=== PATIENT | male | born 1940 ===

== ENCOUNTER 2022-08-09 13:55 | Emergency (ER) | payer MEDICARE, BC ==
[2022-08-09 14:13] VITALS: BP 153/70; PULSE 87
[2022-08-09] MEDS ORDERED: HYDROmorphone 2 MG/ML Syringe IVPUSH ONE ×2 (14:22→16:11)
[2022-08-09] MEDS ORDERED: HYDROmorphone 2 MG/ML Syringe ONE (14:25)
[2022-08-09 14:29] LABS: BASOPHILS ABSOLUTE AUTO 0.05 K/uL (0.02-0.10); BASOPHILS PERCENT AUTO 0.3 % (0.0-0.5); EOSINOPHILS ABSOLUTE AUTO 0.05 K/uL (0.04-0.40); EOSINOPHILS PERCENT AUTO 0.3 % (1.0-5.0); HEMATOCRIT 39.2 % (40.0-54.0); HEMOGLOBIN 12.9 g/dL (13.0-18.0); LYMPHOCYTES ABSOLUTE AUTO 1.74 K/uL (1.50-4.00); LYMPHOCYTES PERCENT AUTO 10.2 % (20.0-40.0); MEAN CORPUSCULAR HEMOGLOBIN 30.1 pg (27.0-32.0); MEAN CORPUSCULAR HGB CONC 32.9 g/dL (31.0-35.0); MEAN CORPUSCULAR VOLUME 92 fL (76-96); MEAN PLATELET VOLUME 10.3 fL (6.0-10.0); MONOCYTES ABSOLUTE AUTO 1.34 K/uL (0.20-0.80); MONOCYTES PERCENT AUTO 7.8 % (3.0-10.0); NEUTROPHILS ABSOLUTE AUTO 13.94 K/uL (2.00-7.50); NEUTROPHILS PERCENT AUTO 81.4 % (45.0-70.0); PLATELET COUNT,PLT 289 K/uL (150-400); RED BLOOD CELL COUNT 4.28 M/uL (4.50-6.50); RED CELL DISTRIBUTION WIDTH 12.7 % (11.0-16.0); WHITE BLOOD CELL COUNT,WBC 17.1 K/uL (4.0-11.0)
[2022-08-09 14:48] LABS: A/G RATIO 1.2 (0.8-2.0); ALANINE AMINOTRANSFERASE,ALT 38 U/L (12-78); ALBUMIN 3.7 g/dL (3.4-5.0); ALKALINE PHOSPHATASE 100 U/L (46-116); ANION GAP 15.9 mmol/L (5.0-15.0); ASPARTATE AMNIOTRANSFERASE,AST 41 U/L (15-37); BILIRUBIN TOTAL 0.2 mg/dL (0.0-1.0); BLOOD UREA NITROGEN,BUN 24 mg/dL (8-26); BUN/CREATININE RATIO 18.3 (6-25); CALCIUM 8.9 mg/dL (8.5-10.1); CARBON DIOXIDE,CO2 24.8 mmol/L (21.0-32.0); CHLORIDE,CL 107 mmol/L (98-107); CREATININE 1.31 mg/dL (0.70-1.30); ESTIMATED GFR 55 mL/min (>60); GLUCOSE RANDOM 177 mg/dL (74-100); POTASSIUM,K 4.7 mmol/L (3.5-5.1); PROTEIN TOTAL,TP 6.9 g/dL (6.4-8.2); SODIUM,NA 143 mmol/L (136-145)
[2022-08-09 14:51] LABS: PROTHROMBIN TIME 10.2 sec (9.0-11.5)
[2022-08-09 14:52] LABS: TROPONIN I HIGH SENSITIVITY 7.6 pg/ml (<=60.4)
[2022-08-09] MEDS ORDERED: Sodium Chloride 0.9% 1,000 ML IV ONE (15:00)
[2022-08-09] MEDS ORDERED: Clindamycin Phosphate 600 MG in Dextrose 5% in Water 50 ML IV ONE ×2 (15:44)
[2022-08-09] MEDS ORDERED: HYDROmorphone 2 MG/ML Syringe IVPUSH PRN (15:46)
[2022-08-09] MEDS ORDERED: Ketorolac 30 MG/ML SDV IVPUSH ONE (16:11)
[2022-08-09] MEDS ORDERED: Ondansetron 4 MG/2 ML SDV IVPUSH ONE (16:11)
[2022-08-09 16:16] LABS: APPEARANCE,URINE CLEAR (CLEAR); BILIRUBIN,URINE NEGATIVE (NEGATIVE); COLOR,URINE YELLOW; GLUCOSE,URINE NEGATIVE (NEGATIVE); KETONES,URINE TRACE mg/dL (NEGATIVE); LEUKOCYTE ESTERASE,URINE NEGATIVE (NEGATIVE); NITRITE,URINE NEGATIVE (NEGATIVE); OCCULT BLOOD,URINE MODERATE (NEGATIVE); PROTEIN,URINE >=300 mg/dL (NEGATIVE); UROBILINOGEN,URINE 0.2 E.U./dL (0.2-1.0)
[2022-08-09] MEDS ORDERED: Ketorolac 30 MG/ML SDV ONE (16:23)
[2022-08-09] MEDS ORDERED: Ondansetron 4 MG/2 ML SDV ONE (16:23)
[2022-08-09 16:28] LABS: RBC,URINE 0-5 /HPF
[2022-08-09 16:29] LABS: WBC,URINE NOT SEEN /HPF
== END 2022-08-09 16:44 ==
LOC: LB.ED 13:55
DX: S32.010A Wedge compression fracture of first lumbar vertebra, initial encounter for closed fracture (principal); S80.01XA Contusion of right knee, initial encounter; S80.02XA Contusion of left knee, initial encounter; S40.012A Contusion of left shoulder, initial encounter; E11.9 Type 2 diabetes mellitus without complications; Z79.84 Long term (current) use of oral hypoglycemic drugs; Z88.0 Allergy status to penicillin; Z88.1 Allergy status to other antibiotic agents; W55.22XA Struck by cow, initial encounter
CPT/HCPCS: 36415; 71250; 72128; 72131; 74176; 80053; 81001; 83605; 83690; 84484; 85025; 85610; 86850; 86900; 86901; 96365; 96375; 96376; 99285; A0425; A0429; J1170; J1885; J2405; J3490; J7030

== ENCOUNTER 2022-08-16 14:39 | Inpatient (IN) | payer MEDICARE, BC ==
[2022-08-16] MEDS ORDERED: Tuberculin, PPD 5 Units/0.1 ML 1 ML MDV IDERM ONE (16:00)
[2022-08-16] MEDS: oxyCODONE 5 MG Tab PO PRN ×2 (16:18→21:20)
[2022-08-16] MEDS: metFORMIN 500 MG Tab PO SCH (17:38)
[2022-08-16] MEDS: Acetaminophen 500 MG Tab PO SCH (19:31)
[2022-08-16] MEDS: Phenytoin 100 MG Cap.ER PO SCH (19:32)
[2022-08-16] MEDS: Aspirin 325 MG Tab.EC PO SCH (19:32)
[2022-08-16] MEDS: atorvaSTATin 80 MG Tab PO SCH (19:33)
[2022-08-16] MEDS: Lisinopril 20 MG Tab PO SCH (21:19)
[2022-08-16] MEDS: Latanoprost 0.005% Ophth Soln 2.5 ML Bottle EYERT SCH (21:20)
[2022-08-17] MEDS: oxyCODONE 5 MG Tab PO PRN ×4 (01:29→20:32)
[2022-08-17] MEDS: Docusate Sodium 100 MG Cap PO SCH (08:10)
[2022-08-17] MEDS: Phenytoin 100 MG Cap.ER PO SCH ×2 (08:11→19:17)
[2022-08-17] MEDS: Polyethylene Glycol 3350 Powder 17 GM Packet PO SCH (08:11)
[2022-08-17] MEDS: metFORMIN 500 MG Tab PO SCH ×2 (08:11→17:02)
[2022-08-17] MEDS: Omeprazole 20 MG Cap.CR PO SCH (08:11)
[2022-08-17] MEDS: Acetaminophen 500 MG Tab PO SCH ×2 (08:13→19:15)
[2022-08-17] MEDS ORDERED: oxyCODONE 5 MG Tab PO ONE (14:15)
[2022-08-17] MEDS: atorvaSTATin 80 MG Tab PO SCH (19:16)
[2022-08-17] MEDS: Lisinopril 20 MG Tab PO SCH (19:17)
[2022-08-17] MEDS: Aspirin 325 MG Tab.EC PO SCH (19:18)
[2022-08-17] MEDS: Latanoprost 0.005% Ophth Soln 2.5 ML Bottle EYERT SCH (19:52)
[2022-08-18] MEDS: oxyCODONE 5 MG Tab PO PRN ×6 (04:32→23:49)
[2022-08-18] MEDS: Omeprazole 20 MG Cap.CR PO SCH (08:22)
[2022-08-18] MEDS: Phenytoin 100 MG Cap.ER PO SCH ×2 (08:22→19:42)
[2022-08-18] MEDS: metFORMIN 500 MG Tab PO SCH ×2 (08:22→16:27)
[2022-08-18] MEDS: Docusate Sodium 100 MG Cap PO SCH (08:22)
[2022-08-18] MEDS: Polyethylene Glycol 3350 Powder 17 GM Packet PO SCH (08:22)
[2022-08-18] MEDS: Acetaminophen 500 MG Tab PO SCH ×2 (08:23→19:42)
[2022-08-18] MEDS: atorvaSTATin 80 MG Tab PO SCH (19:42)
[2022-08-18] MEDS: Aspirin 325 MG Tab.EC PO SCH (19:42)
[2022-08-18] MEDS: Lisinopril 20 MG Tab PO SCH (19:43)
[2022-08-18] MEDS: Latanoprost 0.005% Ophth Soln 2.5 ML Bottle EYERT SCH (19:45)
[2022-08-19] MEDS: metFORMIN 500 MG Tab PO SCH ×2 (09:17→17:06)
[2022-08-19] MEDS: Docusate Sodium 100 MG Cap PO SCH (09:18)
[2022-08-19] MEDS: Omeprazole 20 MG Cap.CR PO SCH (09:19)
[2022-08-19] MEDS: Phenytoin 100 MG Cap.ER PO SCH ×2 (09:19→19:30)
[2022-08-19] MEDS: Acetaminophen 500 MG Tab PO SCH ×2 (09:20→19:31)
[2022-08-19] MEDS: Polyethylene Glycol 3350 Powder 17 GM Packet PO SCH (09:20)
[2022-08-19] MEDS: oxyCODONE 5 MG Tab PO PRN ×2 (09:20→19:34)
[2022-08-19 12:25] LABS: APPEARANCE,URINE CLEAR (CLEAR); BILIRUBIN,URINE NEGATIVE (NEGATIVE); COLOR,URINE YELLOW; GLUCOSE,URINE NEGATIVE (NEGATIVE); KETONES,URINE NEGATIVE (NEGATIVE); LEUKOCYTE ESTERASE,URINE NEGATIVE (NEGATIVE); NITRITE,URINE NEGATIVE (NEGATIVE); OCCULT BLOOD,URINE NEGATIVE (NEGATIVE); PROTEIN,URINE NEGATIVE (NEGATIVE)
[2022-08-19] MEDS: Aspirin 325 MG Tab.EC PO SCH (19:30)
[2022-08-19] MEDS: Lisinopril 20 MG Tab PO SCH (19:32)
[2022-08-19] MEDS: atorvaSTATin 80 MG Tab PO SCH (19:32)
[2022-08-19] MEDS: Latanoprost 0.005% Ophth Soln 2.5 ML Bottle EYERT SCH (19:34)
[2022-08-20] MEDS: Docusate Sodium 100 MG Cap PO SCH (08:09)
[2022-08-20] MEDS: Omeprazole 20 MG Cap.CR PO SCH (08:10)
[2022-08-20] MEDS: Phenytoin 100 MG Cap.ER PO SCH ×2 (08:10→19:57)
[2022-08-20] MEDS: Acetaminophen 500 MG Tab PO SCH ×2 (08:10→19:52)
[2022-08-20] MEDS: Polyethylene Glycol 3350 Powder 17 GM Packet PO SCH (08:10)
[2022-08-20] MEDS: metFORMIN 500 MG Tab PO SCH ×2 (08:10→17:09)
[2022-08-20] MEDS ORDERED: Celecoxib 100 MG Cap PO ONE (11:45)
[2022-08-20] MEDS ORDERED: traZODone 50 MG Tab ONE (19:50)
[2022-08-20] MEDS: Lisinopril 20 MG Tab PO SCH (19:53)
[2022-08-20] MEDS: Celecoxib 100 MG Cap PO SCH (19:54)
[2022-08-20] MEDS: oxyCODONE 5 MG Tab PO PRN (19:55)
[2022-08-20] MEDS: Latanoprost 0.005% Ophth Soln 2.5 ML Bottle EYERT SCH (19:56)
[2022-08-20] MEDS: atorvaSTATin 80 MG Tab PO SCH (19:56)
[2022-08-20] MEDS: Aspirin 325 MG Tab.EC PO SCH (19:56)
[2022-08-20] MEDS: traZODone 50 MG Tab PO PRN (19:57)
[2022-08-21] MEDS ORDERED: LORazepam 2 MG/ML SDV IM PRN (01:27)
[2022-08-21] MEDS: LORazepam 2 MG/ML SDV ONE ×2 (01:30→01:42)
[2022-08-21] MEDS: Phenytoin 100 MG Cap.ER PO SCH ×2 (08:31→19:30)
[2022-08-21] MEDS: metFORMIN 500 MG Tab PO SCH ×2 (08:31→17:49)
[2022-08-21] MEDS: Docusate Sodium 100 MG Cap PO SCH (08:31)
[2022-08-21] MEDS: Omeprazole 20 MG Cap.CR PO SCH (08:31)
[2022-08-21] MEDS: Polyethylene Glycol 3350 Powder 17 GM Packet PO SCH (08:31)
[2022-08-21] MEDS: Celecoxib 100 MG Cap PO SCH ×2 (08:31→19:29)
[2022-08-21] MEDS: Acetaminophen 500 MG Tab PO SCH ×3 (08:32→19:33)
[2022-08-21] MEDS ORDERED: LORazepam 0.5 MG Tab PO PRN (09:39)
[2022-08-21] MEDS: LORazepam 0.5 MG Tab PO SCH ×2 (11:19→19:29)
[2022-08-21] MEDS ORDERED: Acetaminophen 500 MG Tab ONE (13:56)
[2022-08-21] MEDS: LORazepam 0.5 MG Tab PO PRN ×2 (15:15→19:30)
[2022-08-21 15:29] LABS: HEMOGLOBIN 8.8 g/dL (13.0-18.0); MEAN CORPUSCULAR HEMOGLOBIN 30.2 pg (27.0-32.0); MEAN CORPUSCULAR HGB CONC 31.4 g/dL (31.0-35.0); MEAN CORPUSCULAR VOLUME 96 fL (76-96); RED BLOOD CELL COUNT 2.91 M/uL (4.50-6.50); WHITE BLOOD CELL COUNT,WBC 18.3 K/uL (4.0-11.0)
[2022-08-21 15:41] LABS: PLATELET COUNT,PLT 617 K/uL (150-400)
[2022-08-21 15:58] LABS: A/G RATIO 0.7 (0.8-2.0); ALBUMIN 2.8 g/dL (3.4-5.0); ANION GAP 14.6 mmol/L (5.0-15.0); BILIRUBIN TOTAL 0.5 mg/dL (0.0-1.0); BUN/CREATININE RATIO 23.2 (6-25); CALCIUM 8.3 mg/dL (8.5-10.1); CARBON DIOXIDE,CO2 26.7 mmol/L (21.0-32.0); CREATININE 1.51 mg/dL (0.70-1.30); EST CRCL DRUG DOSING (CG) 36.39 mL/min; POTASSIUM,K 5.3 mmol/L (3.5-5.1); PROTEIN TOTAL,TP 6.9 g/dL (6.4-8.2)
[2022-08-21 16:03] LABS: GIANT PLATELETS OCCASIONAL
[2022-08-21] MEDS: oxyCODONE 5 MG Tab PO PRN (19:30)
[2022-08-21] MEDS: Aspirin 325 MG Tab.EC PO SCH (19:36)
[2022-08-21] MEDS: traZODone 50 MG Tab PO PRN (19:36)
[2022-08-21] MEDS: atorvaSTATin 80 MG Tab PO SCH (19:37)
[2022-08-21] MEDS: Lisinopril 20 MG Tab PO SCH (19:37)
[2022-08-21] MEDS: Latanoprost 0.005% Ophth Soln 2.5 ML Bottle EYERT SCH (20:00)
[2022-08-22] MEDS: Acetaminophen 500 MG Tab PO SCH ×4 (08:14→20:23)
[2022-08-22] MEDS: Omeprazole 20 MG Cap.CR PO SCH (08:15)
[2022-08-22] MEDS: Celecoxib 100 MG Cap PO SCH ×2 (08:15→20:20)
[2022-08-22] MEDS: Phenytoin 100 MG Cap.ER PO SCH ×2 (08:15→20:21)
[2022-08-22] MEDS: Polyethylene Glycol 3350 Powder 17 GM Packet PO SCH (08:15)
[2022-08-22] MEDS: metFORMIN 500 MG Tab PO SCH ×2 (08:15→17:23)
[2022-08-22] MEDS: LORazepam 0.5 MG Tab PO SCH ×2 (08:15→20:23)
[2022-08-22] MEDS: Docusate Sodium 100 MG Cap PO SCH (08:15)
[2022-08-22] MEDS ORDERED: Sodium Chloride 0.9% 10 ML Syringe FLUSH PRN (09:12)
[2022-08-22] MEDS ORDERED: Sodium Chloride 0.9% 500 ML IV ONE (09:15)
[2022-08-22] MEDS: Aspirin 325 MG Tab.EC PO SCH (20:20)
[2022-08-22] MEDS: atorvaSTATin 80 MG Tab PO SCH (20:22)
[2022-08-22] MEDS: Zolpidem 5 MG Tab PO SCH (20:23)
[2022-08-22] MEDS: Acetaminophen/Codeine 300-30 MG Tab PO PRN (20:23)
[2022-08-22] MEDS: Latanoprost 0.005% Ophth Soln 2.5 ML Bottle EYERT SCH (20:53)
[2022-08-22] MEDS: Lisinopril 20 MG Tab PO SCH (20:53)
[2022-08-23] MEDS: Acetaminophen/Codeine 300-30 MG Tab PO PRN ×2 (04:11→20:22)
[2022-08-23] MEDS: LORazepam 0.5 MG Tab PO SCH ×2 (08:04→20:20)
[2022-08-23] MEDS: metFORMIN 500 MG Tab PO SCH ×2 (08:05→17:29)
[2022-08-23] MEDS: Celecoxib 100 MG Cap PO SCH ×2 (08:05→20:18)
[2022-08-23] MEDS: Docusate Sodium 100 MG Cap PO SCH (08:06)
[2022-08-23] MEDS: Phenytoin 100 MG Cap.ER PO SCH ×2 (08:06→20:19)
[2022-08-23] MEDS: Acetaminophen 500 MG Tab PO SCH ×3 (08:06→20:18)
[2022-08-23] MEDS: Omeprazole 20 MG Cap.CR PO SCH (08:07)
[2022-08-23] MEDS: Polyethylene Glycol 3350 Powder 17 GM Packet PO SCH (08:07)
[2022-08-23 09:24] LABS: BASOPHILS ABSOLUTE AUTO 0.07 K/uL (0.02-0.10); BASOPHILS PERCENT AUTO 0.5 % (0.0-0.5); EOSINOPHILS ABSOLUTE AUTO 0.38 K/uL (0.04-0.40); EOSINOPHILS PERCENT AUTO 2.7 % (1.0-5.0); HEMATOCRIT 27.6 % (40.0-54.0); HEMOGLOBIN 8.6 g/dL (13.0-18.0); LYMPHOCYTES ABSOLUTE AUTO 1.62 K/uL (1.50-4.00); LYMPHOCYTES PERCENT AUTO 11.5 % (20.0-40.0); MEAN CORPUSCULAR HEMOGLOBIN 30.3 pg (27.0-32.0); MEAN CORPUSCULAR HGB CONC 31.2 g/dL (31.0-35.0); MEAN CORPUSCULAR VOLUME 97 fL (76-96); MEAN PLATELET VOLUME 9.1 fL (6.0-10.0); MONOCYTES ABSOLUTE AUTO 1.41 K/uL (0.20-0.80); NEUTROPHILS ABSOLUTE AUTO 10.55 K/uL (2.00-7.50); NEUTROPHILS PERCENT AUTO 75.3 % (45.0-70.0); PLATELET COUNT,PLT 549 K/uL (150-400); RED BLOOD CELL COUNT 2.84 M/uL (4.50-6.50); RED CELL DISTRIBUTION WIDTH 15.1 % (11.0-16.0)
[2022-08-23] MEDS: Latanoprost 0.005% Ophth Soln 2.5 ML Bottle EYERT SCH (20:17)
[2022-08-23] MEDS: Lisinopril 20 MG Tab PO SCH (20:19)
[2022-08-23] MEDS: Aspirin 325 MG Tab.EC PO SCH (20:20)
[2022-08-23] MEDS: Zolpidem 5 MG Tab PO SCH (20:20)
[2022-08-23] MEDS: atorvaSTATin 80 MG Tab PO SCH (20:20)
[2022-08-24] MEDS: Phenytoin 100 MG Cap.ER PO SCH ×2 (07:45→19:50)
[2022-08-24] MEDS: Polyethylene Glycol 3350 Powder 17 GM Packet PO SCH (07:45)
[2022-08-24] MEDS: Acetaminophen 500 MG Tab PO SCH ×3 (07:45→19:52)
[2022-08-24] MEDS: Docusate Sodium 100 MG Cap PO SCH (07:46)
[2022-08-24] MEDS: Omeprazole 20 MG Cap.CR PO SCH (07:46)
[2022-08-24] MEDS: LORazepam 0.5 MG Tab PO SCH ×2 (07:46→19:52)
[2022-08-24] MEDS: Celecoxib 100 MG Cap PO SCH ×2 (07:47→19:50)
[2022-08-24] MEDS: metFORMIN 500 MG Tab PO SCH ×2 (07:47→17:52)
[2022-08-24] MEDS: Latanoprost 0.005% Ophth Soln 2.5 ML Bottle EYERT SCH (19:50)
[2022-08-24] MEDS: atorvaSTATin 80 MG Tab PO SCH (19:51)
[2022-08-24] MEDS: Aspirin 325 MG Tab.EC PO SCH (19:52)
[2022-08-24] MEDS: Zolpidem 5 MG Tab PO SCH (19:52)
[2022-08-24] MEDS: Lisinopril 20 MG Tab PO SCH (19:53)
[2022-08-24] MEDS: Acetaminophen/Codeine 300-30 MG Tab PO PRN (21:15)
[2022-08-25] MEDS: Celecoxib 100 MG Cap PO SCH ×2 (07:57→20:24)
[2022-08-25] MEDS: metFORMIN 500 MG Tab PO SCH ×2 (07:57→17:15)
[2022-08-25] MEDS: LORazepam 0.5 MG Tab PO SCH ×2 (07:57→20:25)
[2022-08-25] MEDS: Docusate Sodium 100 MG Cap PO SCH (07:57)
[2022-08-25] MEDS: Acetaminophen 500 MG Tab PO SCH ×3 (07:58→20:25)
[2022-08-25] MEDS: Phenytoin 100 MG Cap.ER PO SCH ×2 (07:58→20:24)
[2022-08-25] MEDS: Polyethylene Glycol 3350 Powder 17 GM Packet PO SCH (07:58)
[2022-08-25] MEDS: Omeprazole 20 MG Cap.CR PO SCH (07:58)
[2022-08-25] MEDS: Acetaminophen/Codeine 300-30 MG Tab PO PRN (20:25)
[2022-08-25] MEDS: Zolpidem 5 MG Tab PO SCH (20:26)
[2022-08-25] MEDS: Aspirin 325 MG Tab.EC PO SCH (20:27)
[2022-08-25] MEDS: atorvaSTATin 80 MG Tab PO SCH (20:27)
[2022-08-25] MEDS: Lisinopril 20 MG Tab PO SCH (20:28)
[2022-08-25] MEDS: Latanoprost 0.005% Ophth Soln 2.5 ML Bottle EYERT SCH (20:28)
[2022-08-26] MEDS: Acetaminophen/Codeine 300-30 MG Tab PO PRN ×2 (05:44→20:24)
[2022-08-26] MEDS: metFORMIN 500 MG Tab PO SCH ×2 (07:51→17:25)
[2022-08-26] MEDS: Docusate Sodium 100 MG Cap PO SCH (07:51)
[2022-08-26] MEDS: Celecoxib 100 MG Cap PO SCH ×2 (07:51→20:22)
[2022-08-26] MEDS: LORazepam 0.5 MG Tab PO SCH ×2 (07:51→20:25)
[2022-08-26] MEDS: Polyethylene Glycol 3350 Powder 17 GM Packet PO SCH (07:52)
[2022-08-26] MEDS: Omeprazole 20 MG Cap.CR PO SCH (07:52)
[2022-08-26] MEDS: Phenytoin 100 MG Cap.ER PO SCH ×2 (07:52→20:23)
[2022-08-26] MEDS: Acetaminophen 500 MG Tab PO SCH ×3 (07:52→20:26)
[2022-08-26 09:46] LABS: BASOPHILS ABSOLUTE AUTO 0.06 K/uL (0.02-0.10); BASOPHILS PERCENT AUTO 0.5 % (0.0-0.5); EOSINOPHILS ABSOLUTE AUTO 0.33 K/uL (0.04-0.40); EOSINOPHILS PERCENT AUTO 2.9 % (1.0-5.0); HEMOGLOBIN 9.3 g/dL (13.0-18.0); LYMPHOCYTES ABSOLUTE AUTO 1.05 K/uL (1.50-4.00); LYMPHOCYTES PERCENT AUTO 9.1 % (20.0-40.0); MEAN CORPUSCULAR HEMOGLOBIN 30.2 pg (27.0-32.0); MEAN CORPUSCULAR VOLUME 97 fL (76-96); MONOCYTES ABSOLUTE AUTO 1.01 K/uL (0.20-0.80); MONOCYTES PERCENT AUTO 8.8 % (3.0-10.0); NEUTROPHILS ABSOLUTE AUTO 9.08 K/uL (2.00-7.50); NEUTROPHILS PERCENT AUTO 78.7 % (45.0-70.0); PLATELET COUNT,PLT 572 K/uL (150-400); RED BLOOD CELL COUNT 3.08 M/uL (4.50-6.50); WHITE BLOOD CELL COUNT,WBC 11.5 K/uL (4.0-11.0)
[2022-08-26 10:04] LABS: INR 0.9 (1.0-3.5); PTT,PARTIAL THROMBOPLSTIN TIME 21.5 SECONDS (24.4-33.2)
[2022-08-26 10:59] LABS: PROTHROMBIN TIME 9.4 sec (9.0-11.5)
[2022-08-26] MEDS: Latanoprost 0.005% Ophth Soln 2.5 ML Bottle EYERT SCH (20:22)
[2022-08-26] MEDS: atorvaSTATin 80 MG Tab PO SCH (20:24)
[2022-08-26] MEDS: Aspirin 325 MG Tab.EC PO SCH (20:25)
[2022-08-26] MEDS: Lisinopril 20 MG Tab PO SCH (20:26)
[2022-08-26] MEDS: Zolpidem 5 MG Tab PO SCH (20:27)
[2022-08-27] MEDS: Docusate Sodium 100 MG Cap PO SCH (08:18)
[2022-08-27] MEDS: Phenytoin 100 MG Cap.ER PO SCH ×2 (08:19→20:22)
[2022-08-27] MEDS: Celecoxib 100 MG Cap PO SCH ×2 (08:19→20:22)
[2022-08-27] MEDS: metFORMIN 500 MG Tab PO SCH ×2 (08:19→17:01)
[2022-08-27] MEDS: Omeprazole 20 MG Cap.CR PO SCH (08:19)
[2022-08-27] MEDS: Acetaminophen 500 MG Tab PO SCH ×3 (08:20→20:23)
[2022-08-27] MEDS: LORazepam 0.5 MG Tab PO SCH ×2 (08:21→20:23)
[2022-08-27] MEDS: Polyethylene Glycol 3350 Powder 17 GM Packet PO SCH (08:22)
[2022-08-27] MEDS: Latanoprost 0.005% Ophth Soln 2.5 ML Bottle EYERT SCH (20:21)
[2022-08-27] MEDS: Acetaminophen/Codeine 300-30 MG Tab PO PRN (20:24)
[2022-08-27] MEDS: Zolpidem 5 MG Tab PO SCH (20:24)
[2022-08-27] MEDS: Lisinopril 20 MG Tab PO SCH (20:24)
[2022-08-27] MEDS: Aspirin 325 MG Tab.EC PO SCH (20:25)
[2022-08-27] MEDS: atorvaSTATin 80 MG Tab PO SCH (20:25)
[2022-08-28] MEDS: Acetaminophen/Codeine 300-30 MG Tab PO PRN (06:36)
[2022-08-28 08:21] VITALS: BP 145/55; PULSE 75
[2022-08-28] MEDS: metFORMIN 500 MG Tab PO SCH (08:31)
[2022-08-28] MEDS: Docusate Sodium 100 MG Cap PO SCH (08:31)
[2022-08-28] MEDS: Phenytoin 100 MG Cap.ER PO SCH (08:32)
[2022-08-28] MEDS: Acetaminophen 500 MG Tab PO SCH (08:33)
[2022-08-28] MEDS: Omeprazole 20 MG Cap.CR PO SCH (08:33)
[2022-08-28] MEDS: Celecoxib 100 MG Cap PO SCH (08:33)
[2022-08-28] MEDS: LORazepam 0.5 MG Tab PO SCH (08:34)
[2022-08-28] MEDS: Polyethylene Glycol 3350 Powder 17 GM Packet PO SCH (08:35)
== END 2022-08-28 10:11 | disposition home or self-care (01) | DRG 561 ==
LOC: LB.MS 15:17
PROVIDERS: ADMIT Surgery; ATTEND Surgery
DX: S22.42XD Multiple fractures of ribs, left side, subsequent encounter for fracture with routine healing (principal); S22.089D Unspecified fracture of T11-T12 vertebra, subsequent encounter for fracture with routine healing; E11.9 Type 2 diabetes mellitus without complications; I10 Essential (primary) hypertension; Z79.84 Long term (current) use of oral hypoglycemic drugs; Z79.899 Other long term (current) drug therapy; Z79.82 Long term (current) use of aspirin; Z87.891 Personal history of nicotine dependence; Z87.820 Personal history of traumatic brain injury; Z90.49 Acquired absence of other specified parts of digestive tract; Z88.0 Allergy status to penicillin
CPT/HCPCS: 36415; 71045; 80053; 81003; 82947; 85018; 85025; 85610; 85730; 86580; 92507-GN; 92523-GN; 97110-GP; 97162-GP; 97165-GO; 97530-GO; 97530-GP; 97535-GO; 99305; 99307; 99308; 99315; A9270-GY; J2060; J7040

== ENCOUNTER 2022-09-16 08:34 | Emergency (ER) | payer MEDICARE, BC ==
[2022-09-16] MEDS: Sodium Chloride 0.9% 1,000 ML IV SCH ×3 (09:13→14:30)
[2022-09-16] MEDS ORDERED: Sodium Chloride 0.9% 10 ML Syringe FLUSH PRN (09:16)
[2022-09-16 09:27] LABS: BASOPHILS ABSOLUTE AUTO 0.03 K/uL (0.02-0.10); BASOPHILS PERCENT AUTO 0.2 % (0.0-0.5); EOSINOPHILS ABSOLUTE AUTO 0.01 K/uL (0.04-0.40); EOSINOPHILS PERCENT AUTO 0.1 % (1.0-5.0); HEMATOCRIT 40.7 % (40.0-54.0); HEMOGLOBIN 12.9 g/dL (13.0-18.0); LYMPHOCYTES ABSOLUTE AUTO 0.81 K/uL (1.50-4.00); LYMPHOCYTES PERCENT AUTO 5.3 % (20.0-40.0); MEAN CORPUSCULAR HEMOGLOBIN 28.8 pg (27.0-32.0); MEAN CORPUSCULAR HGB CONC 31.7 g/dL (31.0-35.0); MEAN CORPUSCULAR VOLUME 91 fL (76-96); MEAN PLATELET VOLUME 9.8 fL (6.0-10.0); MONOCYTES ABSOLUTE AUTO 0.62 K/uL (0.20-0.80); MONOCYTES PERCENT AUTO 4.1 % (3.0-10.0); NEUTROPHILS PERCENT AUTO 90.3 % (45.0-70.0); PLATELET COUNT,PLT 526 K/uL (150-400); RED BLOOD CELL COUNT 4.48 M/uL (4.50-6.50); WHITE BLOOD CELL COUNT,WBC 15.2 K/uL (4.0-11.0)
[2022-09-16] MEDS: Ondansetron 4 MG/2 ML SDV IVPUSH ONE (09:45)
[2022-09-16 09:51] LABS: BLOOD UREA NITROGEN,BUN 25 mg/dL (8-26); CHLORIDE,CL 96 mmol/L (98-107); MAGNESIUM 1.2 mg/dL (1.8-2.4)
[2022-09-16 09:54] LABS: A/G RATIO 0.7 (0.8-2.0); ALANINE AMINOTRANSFERASE,ALT 20 U/L (12-78); ALBUMIN 3.2 g/dL (3.4-5.0); ALKALINE PHOSPHATASE 162 U/L (46-116); ANION GAP 18.9 mmol/L (5.0-15.0); ASPARTATE AMNIOTRANSFERASE,AST 21 U/L (15-37); B-TYPE NATRIURETIC PEPTIDE,BNP 615 pg/mL (0-450); BUN/CREATININE RATIO 23.4 (6-25); CALCIUM 9.3 mg/dL (8.5-10.1); CARBON DIOXIDE,CO2 28.4 mmol/L (21.0-32.0); CREATININE 1.07 mg/dL (0.70-1.30); ESTIMATED GFR 70 mL/min (>60); GLUCOSE RANDOM 223 mg/dL (74-100); POTASSIUM,K 4.3 mmol/L (3.5-5.1); PROTEIN TOTAL,TP 7.7 g/dL (6.4-8.2); SODIUM,NA 139 mmol/L (136-145); TROPONIN I HIGH SENSITIVITY 10.3 pg/ml (<=60.4)
[2022-09-16 10:10] LABS: PHOSPHORUS 3.7 mg/dL (2.5-4.9)
[2022-09-16 10:31] LABS: APPEARANCE,URINE CLEAR (CLEAR); BILIRUBIN,URINE NEGATIVE (NEGATIVE); COLOR,URINE YELLOW; GLUCOSE,URINE NEGATIVE (NEGATIVE); KETONES,URINE NEGATIVE (NEGATIVE); LEUKOCYTE ESTERASE,URINE NEGATIVE (NEGATIVE); NITRITE,URINE NEGATIVE (NEGATIVE); OCCULT BLOOD,URINE SMALL (NEGATIVE); PH,URINE 6.5 (5.0-8.0); PROTEIN,URINE 100 mg/dL (NEGATIVE); UROBILINOGEN,URINE 0.2 E.U./dL (0.2-1.0)
[2022-09-16 10:38] LABS: SQUAMOUS EPITHELIAL CELLS,UR FEW /HPF; WBC,URINE 0-5 /HPF
[2022-09-16] MEDS: LORazepam 2 MG/ML SDV IVPUSH ONE (11:00)
[2022-09-16 11:28] LABS: BILIRUBIN TOTAL 0.4 mg/dL (0.0-1.0)
[2022-09-16] MEDS: Metoprolol Tartrate 5 MG/5 ML SDV IVPUSH ONE (11:45)
[2022-09-16] MEDS: Ondansetron 4 MG/2 ML SDV ONE (11:50)
[2022-09-16] MEDS: LORazepam 2 MG/ML SDV ONE (12:03)
[2022-09-16] MEDS: Iopamidol 612 MG/ML 100 ML Bottle IV PRN (12:55)
[2022-09-16] MEDS: Sodium Chloride 0.9% 50 ML SDV FLUSH SCH (12:55)
[2022-09-16 16:35] VITALS: BP 107/46; PULSE 116
== END 2022-09-16 16:33 ==
LOC: LB.ED 08:34
DX: S80.12XA Contusion of left lower leg, initial encounter (principal); S70.12XA Contusion of left thigh, initial encounter; L02.416 Cutaneous abscess of left lower limb; E78.00 Pure hypercholesterolemia, unspecified; I10 Essential (primary) hypertension; J43.9 Emphysema, unspecified; K21.9 Gastro-esophageal reflux disease without esophagitis; E11.9 Type 2 diabetes mellitus without complications; Z79.899 Other long term (current) drug therapy; Z79.82 Long term (current) use of aspirin; Z79.84 Long term (current) use of oral hypoglycemic drugs; Z88.0 Allergy status to penicillin; Z88.1 Allergy status to other antibiotic agents; Z88.5 Allergy status to narcotic agent; Z88.8 Allergy status to other drugs, medicaments and biological substances
CPT/HCPCS: 36415; 71045; 71275; 73700-LT; 80053; 81001; 83605; 83735; 83880; 84100; 84484; 85025; 85379; 87040; 93005; 93010; 96361; 96365; 96366; 96368; 96375; 99285; 99285-25; A0425; A0429; J2405; J3370; J3475; J3490; J7030; J7050; Q9967

== ENCOUNTER 2022-10-07 11:34 | Inpatient (IN) | payer MEDICARE, BC ==
[2022-10-07] MEDS ORDERED: Tuberculin, PPD 5 Units/0.1 ML 1 ML MDV IDERM ONE (12:11)
[2022-10-07] MEDS: Acetaminophen/Codeine 300-30 MG Tab PO PRN ×2 (16:05→22:23)
[2022-10-07] MEDS: Furosemide 20 MG Tab PO SCH (16:06)
[2022-10-07] MEDS: metFORMIN 1,000 MG Tab PO SCH (18:21)
[2022-10-07] MEDS: atorvaSTATin 80 MG Tab PO SCH (19:43)
[2022-10-07] MEDS: Phenytoin 100 MG Cap.ER PO SCH (19:43)
[2022-10-07] MEDS: Apixaban 5 MG Tab PO SCH (19:43)
[2022-10-07] MEDS: Acetaminophen 650 MG Tab.ER PO SCH (19:43)
[2022-10-07] MEDS: Zinc Oxide 20% Oint 56.7 GM Tube TOP PRN (19:56)
[2022-10-07] MEDS: Latanoprost 0.005% Ophth Soln 2.5 ML Bottle EYERT SCH (22:25)
[2022-10-08] MEDS ORDERED: Lisinopril 5 MG Tab PO SCH (08:00)
[2022-10-08] MEDS: metFORMIN 1,000 MG Tab PO SCH ×2 (08:02→17:03)
[2022-10-08] MEDS: Acetaminophen 650 MG Tab.ER PO SCH ×2 (08:03→22:14)
[2022-10-08] MEDS: Phenytoin 100 MG Cap.ER PO SCH ×2 (08:03→22:14)
[2022-10-08] MEDS: Apixaban 5 MG Tab PO SCH ×2 (08:03→22:14)
[2022-10-08] MEDS: Digoxin 125 MCG Tab PO SCH (08:04)
[2022-10-08] MEDS: Metoprolol Succinate 25 MG Tab.ER PO SCH (08:04)
[2022-10-08] MEDS: Furosemide 20 MG Tab PO SCH ×2 (08:04→17:02)
[2022-10-08] MEDS: Omeprazole 20 MG Cap.CR PO SCH (08:04)
[2022-10-08 09:50] LABS: BASOPHILS PERCENT AUTO 0.8 % (0.0-0.5); EOSINOPHILS PERCENT AUTO 2.5 % (1.0-5.0); HEMATOCRIT 29.8 % (40.0-54.0); HEMOGLOBIN 9.6 g/dL (13.0-18.0); LYMPHOCYTES ABSOLUTE AUTO 2.26 K/uL (1.50-4.00); MEAN CORPUSCULAR HEMOGLOBIN 27.7 pg (27.0-32.0); MEAN CORPUSCULAR HGB CONC 32.2 g/dL (31.0-35.0); MEAN CORPUSCULAR VOLUME 86 fL (76-96); MEAN PLATELET VOLUME 9.3 fL (6.0-10.0); MONOCYTES ABSOLUTE AUTO 1.61 K/uL (0.20-0.80); MONOCYTES PERCENT AUTO 13.5 % (3.0-10.0); NEUTROPHILS ABSOLUTE AUTO 7.65 K/uL (2.00-7.50); NEUTROPHILS PERCENT AUTO 64.2 % (45.0-70.0); PLATELET COUNT,PLT 541 K/uL (150-400); RED BLOOD CELL COUNT 3.46 M/uL (4.50-6.50); RED CELL DISTRIBUTION WIDTH 15.9 % (11.0-16.0); WHITE BLOOD CELL COUNT,WBC 11.9 K/uL (4.0-11.0)
[2022-10-08 10:14] LABS: A/G RATIO 0.6 (0.8-2.0); ALBUMIN 2.6 g/dL (3.4-5.0); ANION GAP 11.5 mmol/L (5.0-15.0); BILIRUBIN TOTAL 0.2 mg/dL (0.0-1.0); BUN/CREATININE RATIO 36.5 (6-25); CALCIUM 8.8 mg/dL (8.5-10.1); CREATININE 1.26 mg/dL (0.70-1.30); EST CRCL DRUG DOSING (CG) 43.72 mL/min; POTASSIUM,K 4.5 mmol/L (3.5-5.1); PROTEIN TOTAL,TP 6.8 g/dL (6.4-8.2)
[2022-10-08] MEDS: atorvaSTATin 80 MG Tab PO SCH (22:14)
[2022-10-08] MEDS: Latanoprost 0.005% Ophth Soln 2.5 ML Bottle EYERT SCH (22:15)
[2022-10-09] MEDS: metFORMIN 1,000 MG Tab PO SCH ×2 (08:00→16:27)
[2022-10-09] MEDS: Omeprazole 20 MG Cap.CR PO SCH (08:03)
[2022-10-09] MEDS: Phenytoin 100 MG Cap.ER PO SCH ×2 (08:03→20:04)
[2022-10-09] MEDS: Furosemide 20 MG Tab PO SCH ×2 (08:04→16:27)
[2022-10-09] MEDS: Apixaban 5 MG Tab PO SCH ×2 (08:04→20:05)
[2022-10-09] MEDS: Digoxin 125 MCG Tab PO SCH (08:05)
[2022-10-09] MEDS: Acetaminophen 650 MG Tab.ER PO SCH ×2 (08:05→20:04)
[2022-10-09] MEDS: Metoprolol Succinate 25 MG Tab.ER PO SCH (09:21)
[2022-10-09] MEDS ORDERED: HYDROmorphone 2 MG Tab PO SCH (09:30)
[2022-10-09] MEDS: atorvaSTATin 80 MG Tab PO SCH (20:05)
[2022-10-09] MEDS: Latanoprost 0.005% Ophth Soln 2.5 ML Bottle EYERT SCH (20:09)
[2022-10-10] MEDS: Acetaminophen 650 MG Tab.ER PO SCH ×2 (07:25→20:50)
[2022-10-10] MEDS: Apixaban 5 MG Tab PO SCH ×2 (07:26→20:51)
[2022-10-10] MEDS: Furosemide 20 MG Tab PO SCH (07:26)
[2022-10-10] MEDS: Omeprazole 20 MG Cap.CR PO SCH (07:27)
[2022-10-10] MEDS: Phenytoin 100 MG Cap.ER PO SCH ×2 (07:27→20:50)
[2022-10-10] MEDS: Digoxin 125 MCG Tab PO SCH (07:28)
[2022-10-10] MEDS: metFORMIN 1,000 MG Tab PO SCH ×2 (07:28→16:30)
[2022-10-10] MEDS: Metoprolol Succinate 25 MG Tab.ER PO SCH (09:15)
[2022-10-10] MEDS: atorvaSTATin 80 MG Tab PO SCH (20:50)
[2022-10-10] MEDS: Latanoprost 0.005% Ophth Soln 2.5 ML Bottle EYERT SCH (21:11)
[2022-10-11] MEDS: Metoprolol Succinate 25 MG Tab.ER PO SCH (08:30)
[2022-10-11] MEDS: Phenytoin 100 MG Cap.ER PO SCH ×2 (08:31→20:40)
[2022-10-11] MEDS: Apixaban 5 MG Tab PO SCH ×2 (08:32→20:40)
[2022-10-11] MEDS: metFORMIN 1,000 MG Tab PO SCH ×2 (08:32→17:05)
[2022-10-11] MEDS: Acetaminophen 650 MG Tab.ER PO SCH ×2 (08:32→20:40)
[2022-10-11] MEDS: Digoxin 125 MCG Tab PO SCH (08:34)
[2022-10-11] MEDS: Omeprazole 20 MG Cap.CR PO SCH (08:34)
[2022-10-11] MEDS: Furosemide 20 MG Tab PO SCH (08:34)
[2022-10-11] MEDS ORDERED: HYDROmorphone 2 MG Tab PO PRN (13:17)
[2022-10-11] MEDS ORDERED: HYDROmorphone 2 MG Tab ONE (13:42)
[2022-10-11] MEDS: atorvaSTATin 80 MG Tab PO SCH (20:40)
[2022-10-11] MEDS: Latanoprost 0.005% Ophth Soln 2.5 ML Bottle EYERT SCH (20:41)
[2022-10-12] MEDS: Phenytoin 100 MG Cap.ER PO SCH ×2 (08:33→19:48)
[2022-10-12] MEDS: Metoprolol Succinate 25 MG Tab.ER PO SCH (08:33)
[2022-10-12] MEDS: Omeprazole 20 MG Cap.CR PO SCH (08:33)
[2022-10-12] MEDS: Furosemide 20 MG Tab PO SCH (08:33)
[2022-10-12] MEDS: Apixaban 5 MG Tab PO SCH ×2 (08:33→19:49)
[2022-10-12] MEDS: Acetaminophen 650 MG Tab.ER PO SCH ×2 (08:33→19:49)
[2022-10-12] MEDS: Digoxin 125 MCG Tab PO SCH (08:33)
[2022-10-12] MEDS: metFORMIN 1,000 MG Tab PO SCH ×2 (08:33→18:14)
[2022-10-12] MEDS: atorvaSTATin 80 MG Tab PO SCH (19:48)
[2022-10-12] MEDS: Acetaminophen/Codeine 300-30 MG Tab PO PRN (19:48)
[2022-10-12] MEDS: Latanoprost 0.005% Ophth Soln 2.5 ML Bottle EYERT SCH (20:00)
[2022-10-13] MEDS: Metoprolol Succinate 25 MG Tab.ER PO SCH (09:16)
[2022-10-13] MEDS: Apixaban 5 MG Tab PO SCH ×2 (09:17→20:27)
[2022-10-13] MEDS: Phenytoin 100 MG Cap.ER PO SCH ×2 (09:17→20:27)
[2022-10-13] MEDS: Furosemide 20 MG Tab PO SCH (09:17)
[2022-10-13] MEDS: Acetaminophen 650 MG Tab.ER PO SCH ×2 (09:18→20:28)
[2022-10-13] MEDS: Digoxin 125 MCG Tab PO SCH (09:18)
[2022-10-13] MEDS: Omeprazole 20 MG Cap.CR PO SCH (09:21)
[2022-10-13] MEDS: metFORMIN 1,000 MG Tab PO SCH ×2 (09:22→17:07)
[2022-10-13] MEDS: Acetaminophen/Codeine 300-30 MG Tab PO PRN (20:27)
[2022-10-13] MEDS: atorvaSTATin 80 MG Tab PO SCH (20:28)
[2022-10-13] MEDS: Latanoprost 0.005% Ophth Soln 2.5 ML Bottle EYERT SCH (20:30)
[2022-10-14] MEDS: Acetaminophen/Codeine 300-30 MG Tab PO PRN ×2 (02:19→20:53)
[2022-10-14] MEDS: metFORMIN 1,000 MG Tab PO SCH ×2 (09:05→17:01)
[2022-10-14] MEDS: Acetaminophen 650 MG Tab.ER PO SCH ×2 (09:06→20:53)
[2022-10-14] MEDS: Digoxin 125 MCG Tab PO SCH (09:07)
[2022-10-14] MEDS: Furosemide 20 MG Tab PO SCH (09:08)
[2022-10-14] MEDS: Metoprolol Succinate 25 MG Tab.ER PO SCH (09:09)
[2022-10-14] MEDS: Apixaban 5 MG Tab PO SCH ×2 (09:10→20:52)
[2022-10-14] MEDS: Omeprazole 20 MG Cap.CR PO SCH (09:10)
[2022-10-14] MEDS: Phenytoin 100 MG Cap.ER PO SCH ×2 (09:14→20:52)
[2022-10-14] MEDS ORDERED: Acetaminophen/HYDROcodone 325-10 MG Tab PO PRN (13:14)
[2022-10-14] MEDS: atorvaSTATin 80 MG Tab PO SCH (20:53)
[2022-10-14] MEDS: Latanoprost 0.005% Ophth Soln 2.5 ML Bottle EYERT SCH (20:54)
[2022-10-15] MEDS: Acetaminophen/Codeine 300-30 MG Tab PO PRN ×2 (06:10→19:32)
[2022-10-15] MEDS: Omeprazole 20 MG Cap.CR PO SCH (07:58)
[2022-10-15] MEDS: Apixaban 5 MG Tab PO SCH ×2 (07:59→19:32)
[2022-10-15] MEDS: metFORMIN 500 MG Tab PO SCH ×2 (07:59→16:58)
[2022-10-15] MEDS: Digoxin 125 MCG Tab PO SCH (08:00)
[2022-10-15] MEDS: Phenytoin 100 MG Cap.ER PO SCH ×2 (08:01→19:31)
[2022-10-15] MEDS: Furosemide 20 MG Tab PO SCH (08:01)
[2022-10-15] MEDS: Acetaminophen 650 MG Tab.ER PO SCH ×2 (08:04→19:32)
[2022-10-15] MEDS: Metoprolol Succinate 25 MG Tab.ER PO SCH ×2 (08:04→10:34)
[2022-10-15] MEDS ORDERED: Metoprolol Succinate 25 MG Tab.ER ONE (10:32)
[2022-10-15] MEDS: atorvaSTATin 80 MG Tab PO SCH (19:32)
[2022-10-16] MEDS: Phenytoin 100 MG Cap.ER PO SCH ×2 (07:51→19:33)
[2022-10-16] MEDS: Acetaminophen 650 MG Tab.ER PO SCH ×2 (07:51→19:34)
[2022-10-16] MEDS: metFORMIN 500 MG Tab PO SCH ×2 (07:53→16:56)
[2022-10-16] MEDS: Metoprolol Succinate 25 MG Tab.ER PO SCH (07:54)
[2022-10-16] MEDS: Apixaban 5 MG Tab PO SCH ×2 (07:55→19:33)
[2022-10-16] MEDS: Digoxin 125 MCG Tab PO SCH (07:55)
[2022-10-16] MEDS: Omeprazole 20 MG Cap.CR PO SCH (07:56)
[2022-10-16] MEDS: Furosemide 20 MG Tab PO SCH (07:56)
[2022-10-16] MEDS: Zinc Oxide 20% Oint 56.7 GM Tube TOP PRN (08:06)
[2022-10-16 08:50] LABS: BASOPHILS ABSOLUTE AUTO 0.06 K/uL (0.02-0.10); BASOPHILS PERCENT AUTO 0.4 % (0.0-0.5); EOSINOPHILS ABSOLUTE AUTO 0.17 K/uL (0.04-0.40); EOSINOPHILS PERCENT AUTO 1.1 % (1.0-5.0); HEMATOCRIT 33.4 % (40.0-54.0); HEMOGLOBIN 10.6 g/dL (13.0-18.0); LYMPHOCYTES ABSOLUTE AUTO 2.97 K/uL (1.50-4.00); LYMPHOCYTES PERCENT AUTO 19.4 % (20.0-40.0); MEAN CORPUSCULAR HEMOGLOBIN 27.3 pg (27.0-32.0); MEAN CORPUSCULAR HGB CONC 31.7 g/dL (31.0-35.0); MEAN CORPUSCULAR VOLUME 86 fL (76-96); MEAN PLATELET VOLUME 9.3 fL (6.0-10.0); MONOCYTES ABSOLUTE AUTO 1.55 K/uL (0.20-0.80); MONOCYTES PERCENT AUTO 10.1 % (3.0-10.0); NEUTROPHILS ABSOLUTE AUTO 10.53 K/uL (2.00-7.50); PLATELET COUNT,PLT 491 K/uL (150-400); RED BLOOD CELL COUNT 3.88 M/uL (4.50-6.50); RED CELL DISTRIBUTION WIDTH 15.4 % (11.0-16.0); WHITE BLOOD CELL COUNT,WBC 15.3 K/uL (4.0-11.0)
[2022-10-16 09:23] LABS: A/G RATIO 0.6 (0.8-2.0); ALBUMIN 2.6 g/dL (3.4-5.0); ANION GAP 11.6 mmol/L (5.0-15.0); BILIRUBIN TOTAL 0.2 mg/dL (0.0-1.0); CALCIUM 9.1 mg/dL (8.5-10.1); CARBON DIOXIDE,CO2 29.1 mmol/L (21.0-32.0); CREATININE 0.95 mg/dL (0.70-1.30); EST CRCL DRUG DOSING (CG) 57.84 mL/min; POTASSIUM,K 4.7 mmol/L (3.5-5.1)
[2022-10-16 09:31] LABS: BUN/CREATININE RATIO 50.5 (6-25)
[2022-10-16 09:50] LABS: SEDIMENTATION RATE MANUAL 40 mm/hr (0-20)
[2022-10-16] MEDS: atorvaSTATin 80 MG Tab PO SCH (19:33)
[2022-10-16] MEDS: Acetaminophen/Codeine 300-30 MG Tab PO PRN (19:33)
[2022-10-16] MEDS: Latanoprost 0.005% Ophth Soln 2.5 ML Bottle EYERT SCH ×2 (19:36→20:19)
[2022-10-17] MEDS: metFORMIN 500 MG Tab PO SCH ×2 (07:57→17:10)
[2022-10-17] MEDS: Acetaminophen 650 MG Tab.ER PO SCH ×2 (07:58→19:50)
[2022-10-17] MEDS: Apixaban 5 MG Tab PO SCH ×2 (08:00→19:50)
[2022-10-17] MEDS: Omeprazole 20 MG Cap.CR PO SCH (08:00)
[2022-10-17] MEDS: Phenytoin 100 MG Cap.ER PO SCH ×2 (08:00→19:50)
[2022-10-17] MEDS: Digoxin 125 MCG Tab PO SCH (08:01)
[2022-10-17] MEDS: Metoprolol Succinate 25 MG Tab.ER PO SCH (08:01)
[2022-10-17] MEDS: HYDROmorphone 2 MG Tab PO PRN (10:42)
[2022-10-17] MEDS: atorvaSTATin 80 MG Tab PO SCH (19:50)
[2022-10-17] MEDS: Latanoprost 0.005% Ophth Soln 2.5 ML Bottle EYERT SCH (19:55)
[2022-10-18] MEDS: HYDROmorphone 2 MG Tab PO PRN (04:00)
[2022-10-18] MEDS: Omeprazole 20 MG Cap.CR PO SCH (07:49)
[2022-10-18] MEDS: Phenytoin 100 MG Cap.ER PO SCH ×2 (07:49→19:56)
[2022-10-18] MEDS: metFORMIN 500 MG Tab PO SCH ×2 (07:50→17:25)
[2022-10-18] MEDS: Digoxin 125 MCG Tab PO SCH (07:50)
[2022-10-18] MEDS: Acetaminophen 650 MG Tab.ER PO SCH ×2 (07:50→19:56)
[2022-10-18] MEDS: Metoprolol Succinate 25 MG Tab.ER PO SCH (07:51)
[2022-10-18] MEDS: Zinc Oxide 20% Oint 56.7 GM Tube TOP PRN (07:51)
[2022-10-18] MEDS: Apixaban 5 MG Tab PO SCH ×2 (07:51→19:56)
[2022-10-18] MEDS: Acetaminophen/Codeine 300-30 MG Tab PO PRN (15:22)
[2022-10-18] MEDS: Latanoprost 0.005% Ophth Soln 2.5 ML Bottle EYERT SCH (19:56)
[2022-10-18] MEDS: atorvaSTATin 80 MG Tab PO SCH (19:56)
[2022-10-19] MEDS: Metoprolol Succinate 25 MG Tab.ER PO SCH (08:40)
[2022-10-19] MEDS: Acetaminophen 650 MG Tab.ER PO SCH ×2 (08:40→19:17)
[2022-10-19] MEDS: Digoxin 125 MCG Tab PO SCH (08:40)
[2022-10-19] MEDS: Omeprazole 20 MG Cap.CR PO SCH (08:41)
[2022-10-19] MEDS: Phenytoin 100 MG Cap.ER PO SCH ×2 (08:42→19:16)
[2022-10-19] MEDS: Apixaban 5 MG Tab PO SCH ×2 (08:42→19:16)
[2022-10-19] MEDS: metFORMIN 500 MG Tab PO SCH ×2 (08:42→17:17)
[2022-10-19] MEDS: Acetaminophen/Codeine 300-30 MG Tab PO PRN ×2 (15:00→21:41)
[2022-10-19] MEDS: atorvaSTATin 80 MG Tab PO SCH (19:16)
[2022-10-19] MEDS: Latanoprost 0.005% Ophth Soln 2.5 ML Bottle EYERT SCH (19:17)
[2022-10-20] MEDS: Phenytoin 100 MG Cap.ER PO SCH ×2 (08:13→19:39)
[2022-10-20] MEDS: metFORMIN 500 MG Tab PO SCH ×2 (08:14→16:46)
[2022-10-20] MEDS: Apixaban 5 MG Tab PO SCH ×2 (08:14→19:39)
[2022-10-20] MEDS: Metoprolol Succinate 25 MG Tab.ER PO SCH (08:15)
[2022-10-20] MEDS: Digoxin 125 MCG Tab PO SCH (08:15)
[2022-10-20] MEDS: Acetaminophen 650 MG Tab.ER PO SCH ×2 (08:16→19:39)
[2022-10-20] MEDS: Omeprazole 20 MG Cap.CR PO SCH (08:16)
[2022-10-20] MEDS: Acetaminophen/Codeine 300-30 MG Tab PO PRN ×2 (15:55→20:12)
[2022-10-20] MEDS: atorvaSTATin 80 MG Tab PO SCH (19:39)
[2022-10-20] MEDS: Latanoprost 0.005% Ophth Soln 2.5 ML Bottle EYERT SCH (19:39)
[2022-10-21] MEDS: Phenytoin 100 MG Cap.ER PO SCH ×2 (08:21→20:09)
[2022-10-21] MEDS: metFORMIN 500 MG Tab PO SCH ×2 (08:22→18:27)
[2022-10-21] MEDS: Metoprolol Succinate 25 MG Tab.ER PO SCH (08:23)
[2022-10-21] MEDS: Apixaban 5 MG Tab PO SCH ×2 (08:23→20:09)
[2022-10-21] MEDS: Omeprazole 20 MG Cap.CR PO SCH (08:24)
[2022-10-21] MEDS: Digoxin 125 MCG Tab PO SCH (08:24)
[2022-10-21] MEDS: Acetaminophen 650 MG Tab.ER PO SCH ×2 (08:24→20:09)
[2022-10-21] MEDS: HYDROmorphone 2 MG Tab PO PRN ×2 (13:02→13:45)
[2022-10-21] MEDS: atorvaSTATin 80 MG Tab PO SCH (20:08)
[2022-10-21] MEDS: Acetaminophen/Codeine 300-30 MG Tab PO SCH (20:09)
[2022-10-21] MEDS: Latanoprost 0.005% Ophth Soln 2.5 ML Bottle EYERT SCH (20:13)
[2022-10-22] MEDS: Acetaminophen 650 MG Tab.ER PO SCH ×2 (07:47→19:35)
[2022-10-22] MEDS: metFORMIN 500 MG Tab PO SCH ×2 (07:47→17:44)
[2022-10-22] MEDS: Apixaban 5 MG Tab PO SCH ×2 (07:48→19:35)
[2022-10-22] MEDS: Omeprazole 20 MG Cap.CR PO SCH (07:48)
[2022-10-22] MEDS: Digoxin 125 MCG Tab PO SCH (07:49)
[2022-10-22] MEDS: Phenytoin 100 MG Cap.ER PO SCH ×2 (07:49→19:34)
[2022-10-22] MEDS: Metoprolol Succinate 25 MG Tab.ER PO SCH (07:51)
[2022-10-22] MEDS: Acetaminophen/Codeine 300-30 MG Tab PO SCH (19:34)
[2022-10-22] MEDS: atorvaSTATin 80 MG Tab PO SCH (19:35)
[2022-10-22] MEDS: Latanoprost 0.005% Ophth Soln 2.5 ML Bottle EYERT SCH (19:36)
[2022-10-23] MEDS: Digoxin 125 MCG Tab PO SCH (07:56)
[2022-10-23] MEDS: Omeprazole 20 MG Cap.CR PO SCH (07:56)
[2022-10-23] MEDS: Acetaminophen 650 MG Tab.ER PO SCH ×2 (07:56→20:05)
[2022-10-23] MEDS: Phenytoin 100 MG Cap.ER PO SCH ×2 (07:57→20:04)
[2022-10-23] MEDS: Apixaban 5 MG Tab PO SCH ×2 (07:57→20:05)
[2022-10-23] MEDS: Metoprolol Succinate 25 MG Tab.ER PO SCH (07:58)
[2022-10-23] MEDS: metFORMIN 500 MG Tab PO SCH ×2 (07:59→17:45)
[2022-10-23] MEDS: HYDROmorphone 2 MG Tab PO PRN (11:26)
[2022-10-23] MEDS: Acetaminophen/Codeine 300-30 MG Tab PO SCH (20:04)
[2022-10-23] MEDS: atorvaSTATin 80 MG Tab PO SCH (20:05)
[2022-10-24] MEDS: Latanoprost 0.005% Ophth Soln 2.5 ML Bottle EYERT SCH ×2 (05:46→19:29)
[2022-10-24] MEDS: Apixaban 5 MG Tab PO SCH ×2 (07:33→19:25)
[2022-10-24] MEDS: Omeprazole 20 MG Cap.CR PO SCH (07:33)
[2022-10-24] MEDS: metFORMIN 500 MG Tab PO SCH ×2 (07:33→17:07)
[2022-10-24] MEDS: Phenytoin 100 MG Cap.ER PO SCH ×2 (07:34→19:24)
[2022-10-24] MEDS: Acetaminophen 650 MG Tab.ER PO SCH ×2 (07:34→19:24)
[2022-10-24] MEDS: Metoprolol Succinate 25 MG Tab.ER PO SCH (07:34)
[2022-10-24] MEDS: Digoxin 125 MCG Tab PO SCH (07:34)
[2022-10-24] MEDS: atorvaSTATin 80 MG Tab PO SCH (19:23)
[2022-10-24] MEDS: Acetaminophen/Codeine 300-30 MG Tab PO SCH (19:25)
[2022-10-25] MEDS: Omeprazole 20 MG Cap.CR PO SCH (08:10)
[2022-10-25] MEDS: Digoxin 125 MCG Tab PO SCH (08:10)
[2022-10-25] MEDS: Apixaban 5 MG Tab PO SCH ×2 (08:11→19:55)
[2022-10-25] MEDS: Metoprolol Succinate 25 MG Tab.ER PO SCH (08:11)
[2022-10-25] MEDS: Phenytoin 100 MG Cap.ER PO SCH ×2 (08:12→19:56)
[2022-10-25] MEDS: Acetaminophen 650 MG Tab.ER PO SCH ×2 (08:12→19:56)
[2022-10-25] MEDS: HYDROmorphone 2 MG Tab PO PRN (08:13)
[2022-10-25] MEDS: metFORMIN 500 MG Tab PO SCH ×2 (08:13→17:07)
[2022-10-25] MEDS: Acetaminophen/Codeine 300-30 MG Tab PO SCH (19:55)
[2022-10-25] MEDS: atorvaSTATin 80 MG Tab PO SCH (19:55)
[2022-10-25] MEDS: Latanoprost 0.005% Ophth Soln 2.5 ML Bottle EYERT SCH (19:58)
[2022-10-25] MEDS ORDERED: traZODone 50 MG Tab ONE (22:29)
[2022-10-25] MEDS: traZODone 100 MG Tab PO SCH (22:36)
[2022-10-26] MEDS: Acetaminophen 650 MG Tab.ER PO SCH ×2 (07:19→20:19)
[2022-10-26] MEDS: Omeprazole 20 MG Cap.CR PO SCH (07:19)
[2022-10-26] MEDS: Digoxin 125 MCG Tab PO SCH (07:19)
[2022-10-26] MEDS: Metoprolol Succinate 25 MG Tab.ER PO SCH (07:20)
[2022-10-26] MEDS: Phenytoin 100 MG Cap.ER PO SCH ×2 (07:20→20:18)
[2022-10-26] MEDS: Apixaban 5 MG Tab PO SCH ×2 (07:22→20:19)
[2022-10-26] MEDS: metFORMIN 500 MG Tab PO SCH ×2 (07:22→16:41)
[2022-10-26] MEDS: Acetaminophen/Codeine 300-30 MG Tab PO SCH (20:18)
[2022-10-26] MEDS: Latanoprost 0.005% Ophth Soln 2.5 ML Bottle EYERT SCH (20:18)
[2022-10-26] MEDS: atorvaSTATin 80 MG Tab PO SCH (20:19)
[2022-10-26] MEDS: traZODone 100 MG Tab PO SCH (20:19)
[2022-10-27] MEDS: Metoprolol Succinate 25 MG Tab.ER PO SCH (08:15)
[2022-10-27] MEDS: Apixaban 5 MG Tab PO SCH ×2 (08:16→20:20)
[2022-10-27] MEDS: Phenytoin 100 MG Cap.ER PO SCH ×2 (08:16→20:20)
[2022-10-27] MEDS: Digoxin 125 MCG Tab PO SCH (08:17)
[2022-10-27] MEDS: Acetaminophen 650 MG Tab.ER PO SCH ×2 (08:17→20:20)
[2022-10-27] MEDS: metFORMIN 500 MG Tab PO SCH ×2 (08:17→17:24)
[2022-10-27] MEDS: Omeprazole 20 MG Cap.CR PO SCH (08:17)
[2022-10-27] MEDS: atorvaSTATin 80 MG Tab PO SCH (20:19)
[2022-10-27] MEDS: traZODone 100 MG Tab PO SCH (20:19)
[2022-10-27] MEDS: Latanoprost 0.005% Ophth Soln 2.5 ML Bottle EYERT SCH (20:20)
[2022-10-27] MEDS: Acetaminophen/Codeine 300-30 MG Tab PO SCH (20:20)
[2022-10-28] MEDS: Apixaban 5 MG Tab PO SCH ×2 (08:09→20:03)
[2022-10-28] MEDS: Acetaminophen 650 MG Tab.ER PO SCH ×2 (08:09→20:03)
[2022-10-28] MEDS: Omeprazole 20 MG Cap.CR PO SCH (08:09)
[2022-10-28] MEDS: Digoxin 125 MCG Tab PO SCH (08:10)
[2022-10-28] MEDS: Phenytoin 100 MG Cap.ER PO SCH ×2 (08:10→20:03)
[2022-10-28] MEDS: metFORMIN 500 MG Tab PO SCH ×2 (08:10→16:53)
[2022-10-28] MEDS: Metoprolol Succinate 25 MG Tab.ER PO SCH (08:11)
[2022-10-28 08:12] LABS: BASOPHILS ABSOLUTE AUTO 0.06 K/uL (0.02-0.10); BASOPHILS PERCENT AUTO 0.3 % (0.0-0.5); EOSINOPHILS ABSOLUTE AUTO 0.28 K/uL (0.04-0.40); EOSINOPHILS PERCENT AUTO 1.6 % (1.0-5.0); HEMATOCRIT 31.2 % (40.0-54.0); LYMPHOCYTES ABSOLUTE AUTO 3.52 K/uL (1.50-4.00); LYMPHOCYTES PERCENT AUTO 20.1 % (20.0-40.0); MEAN CORPUSCULAR HEMOGLOBIN 26.5 pg (27.0-32.0); MEAN CORPUSCULAR HGB CONC 32.1 g/dL (31.0-35.0); MEAN CORPUSCULAR VOLUME 83 fL (76-96); MEAN PLATELET VOLUME 8.9 fL (6.0-10.0); MONOCYTES ABSOLUTE AUTO 2.14 K/uL (0.20-0.80); MONOCYTES PERCENT AUTO 12.2 % (3.0-10.0); NEUTROPHILS ABSOLUTE AUTO 11.49 K/uL (2.00-7.50); NEUTROPHILS PERCENT AUTO 65.8 % (45.0-70.0); PLATELET COUNT,PLT 484 K/uL (150-400); RED BLOOD CELL COUNT 3.78 M/uL (4.50-6.50); RED CELL DISTRIBUTION WIDTH 15.6 % (11.0-16.0); WHITE BLOOD CELL COUNT,WBC 17.5 K/uL (4.0-11.0)
[2022-10-28] MEDS: HYDROmorphone 2 MG Tab PO PRN (12:56)
[2022-10-28] MEDS: Acetaminophen/Codeine 300-30 MG Tab PO PRN (18:02)
[2022-10-28] MEDS: Latanoprost 0.005% Ophth Soln 2.5 ML Bottle EYERT SCH (20:03)
[2022-10-28] MEDS: atorvaSTATin 80 MG Tab PO SCH (20:03)
[2022-10-28] MEDS: traZODone 50 MG Tab PO SCH (20:03)
[2022-10-29] MEDS: Acetaminophen/Codeine 300-30 MG Tab PO SCH ×2 (03:39→19:40)
[2022-10-29] MEDS: Digoxin 125 MCG Tab PO SCH (08:33)
[2022-10-29] MEDS: Acetaminophen 650 MG Tab.ER PO SCH ×2 (08:33→19:41)
[2022-10-29] MEDS: metFORMIN 500 MG Tab PO SCH ×2 (08:33→17:05)
[2022-10-29] MEDS: Apixaban 5 MG Tab PO SCH ×2 (08:34→19:41)
[2022-10-29] MEDS: Phenytoin 100 MG Cap.ER PO SCH ×2 (08:34→19:40)
[2022-10-29] MEDS: Omeprazole 20 MG Cap.CR PO SCH (08:34)
[2022-10-29] MEDS: Metoprolol Succinate 25 MG Tab.ER PO SCH (08:35)
[2022-10-29 10:45] LABS: A/G RATIO 0.5 (0.8-2.0); ALBUMIN 2.4 g/dL (3.4-5.0); ANION GAP 15.3 mmol/L (5.0-15.0); BILIRUBIN TOTAL 0.1 mg/dL (0.0-1.0); BUN/CREATININE RATIO 37.5 (6-25); CALCIUM 8.9 mg/dL (8.5-10.1); CARBON DIOXIDE,CO2 25.1 mmol/L (21.0-32.0); CREATININE 0.96 mg/dL (0.70-1.30); EST CRCL DRUG DOSING (CG) 54.34 mL/min; POTASSIUM,K 4.4 mmol/L (3.5-5.1)
[2022-10-29] MEDS: atorvaSTATin 80 MG Tab PO SCH (19:40)
[2022-10-29] MEDS: traZODone 50 MG Tab PO SCH (19:41)
[2022-10-29] MEDS: Latanoprost 0.005% Ophth Soln 2.5 ML Bottle EYERT SCH (19:41)
[2022-10-30] MEDS: Acetaminophen/Codeine 300-30 MG Tab PO PRN (01:18)
[2022-10-30] MEDS: Acetaminophen 650 MG Tab.ER PO SCH ×2 (08:01→19:47)
[2022-10-30] MEDS: Digoxin 125 MCG Tab PO SCH (08:02)
[2022-10-30] MEDS: metFORMIN 500 MG Tab PO SCH ×2 (08:02→17:55)
[2022-10-30] MEDS: Omeprazole 20 MG Cap.CR PO SCH (08:02)
[2022-10-30] MEDS: Phenytoin 100 MG Cap.ER PO SCH ×2 (08:03→19:46)
[2022-10-30] MEDS: Apixaban 5 MG Tab PO SCH ×2 (08:03→19:46)
[2022-10-30] MEDS: Metoprolol Succinate 25 MG Tab.ER PO SCH (08:04)
[2022-10-30] MEDS: HYDROmorphone 2 MG Tab PO PRN (12:42)
[2022-10-30] MEDS: atorvaSTATin 80 MG Tab PO SCH (19:46)
[2022-10-30] MEDS: traZODone 50 MG Tab PO SCH (19:46)
[2022-10-30] MEDS: Acetaminophen/Codeine 300-30 MG Tab PO SCH (19:47)
[2022-10-30] MEDS: Latanoprost 0.005% Ophth Soln 2.5 ML Bottle EYERT SCH (19:47)
[2022-10-30] MEDS ORDERED: Amoxicillin/Clavulanate K 875-125 MG Tab PO SCH (20:00)
[2022-10-31] MEDS: Digoxin 125 MCG Tab PO SCH (07:36)
[2022-10-31] MEDS: Metoprolol Succinate 25 MG Tab.ER PO SCH (07:38)
[2022-10-31] MEDS: metFORMIN 500 MG Tab PO SCH ×2 (07:38→17:28)
[2022-10-31] MEDS: Acetaminophen 650 MG Tab.ER PO SCH ×2 (07:38→19:24)
[2022-10-31] MEDS: Phenytoin 100 MG Cap.ER PO SCH ×2 (07:38→19:25)
[2022-10-31] MEDS: Omeprazole 20 MG Cap.CR PO SCH (07:38)
[2022-10-31] MEDS: Apixaban 5 MG Tab PO SCH ×2 (07:38→19:25)
[2022-10-31] MEDS: Latanoprost 0.005% Ophth Soln 2.5 ML Bottle EYERT SCH (19:24)
[2022-10-31] MEDS: atorvaSTATin 80 MG Tab PO SCH (19:24)
[2022-10-31] MEDS: Acetaminophen/Codeine 300-30 MG Tab PO SCH (19:25)
[2022-10-31] MEDS: traZODone 50 MG Tab PO SCH (19:25)
[2022-11-01] MEDS: Acetaminophen 650 MG Tab.ER PO SCH ×2 (08:13→20:34)
[2022-11-01] MEDS: metFORMIN 500 MG Tab PO SCH ×2 (08:13→18:44)
[2022-11-01] MEDS: Phenytoin 100 MG Cap.ER PO SCH ×2 (08:14→20:34)
[2022-11-01] MEDS: Apixaban 5 MG Tab PO SCH ×2 (08:15→20:33)
[2022-11-01] MEDS: Digoxin 125 MCG Tab PO SCH (08:15)
[2022-11-01] MEDS: Omeprazole 20 MG Cap.CR PO SCH (08:15)
[2022-11-01] MEDS: Metoprolol Succinate 25 MG Tab.ER PO SCH (08:17)
[2022-11-01 09:42] LABS: HEMATOCRIT 32.4 % (40.0-54.0); HEMOGLOBIN 10.2 g/dL (13.0-18.0); MEAN CORPUSCULAR HEMOGLOBIN 25.9 pg (27.0-32.0); MEAN CORPUSCULAR HGB CONC 31.5 g/dL (31.0-35.0); RED BLOOD CELL COUNT 3.94 M/uL (4.50-6.50); RED CELL DISTRIBUTION WIDTH 15.8 % (11.0-16.0); WHITE BLOOD CELL COUNT,WBC 15.1 K/uL (4.0-11.0)
[2022-11-01] MEDS: atorvaSTATin 80 MG Tab PO SCH (20:32)
[2022-11-01] MEDS: traZODone 50 MG Tab PO SCH (20:32)
[2022-11-01] MEDS: Acetaminophen/Codeine 300-30 MG Tab PO SCH (20:35)
[2022-11-01] MEDS: Latanoprost 0.005% Ophth Soln 2.5 ML Bottle EYERT SCH (20:38)
[2022-11-02] MEDS: Acetaminophen 650 MG Tab.ER PO SCH ×2 (09:08→20:18)
[2022-11-02] MEDS: Apixaban 5 MG Tab PO SCH ×2 (09:08→20:17)
[2022-11-02] MEDS: Phenytoin 100 MG Cap.ER PO SCH ×2 (09:09→20:17)
[2022-11-02] MEDS: metFORMIN 500 MG Tab PO SCH ×2 (09:09→16:39)
[2022-11-02] MEDS: Metoprolol Succinate 25 MG Tab.ER PO SCH (09:09)
[2022-11-02] MEDS: Digoxin 125 MCG Tab PO SCH (09:10)
[2022-11-02] MEDS: Omeprazole 20 MG Cap.CR PO SCH (09:11)
[2022-11-02] MEDS: Acetaminophen/Codeine 300-30 MG Tab PO PRN (16:39)
[2022-11-02] MEDS: traZODone 50 MG Tab PO SCH (20:17)
[2022-11-02] MEDS: atorvaSTATin 80 MG Tab PO SCH (20:17)
[2022-11-02] MEDS: Latanoprost 0.005% Ophth Soln 2.5 ML Bottle EYERT SCH (20:17)
[2022-11-02] MEDS: Acetaminophen/Codeine 300-30 MG Tab PO SCH (20:18)
[2022-11-03] MEDS: Digoxin 125 MCG Tab PO SCH (08:11)
[2022-11-03] MEDS: metFORMIN 500 MG Tab PO SCH ×2 (08:12→16:59)
[2022-11-03] MEDS: Phenytoin 100 MG Cap.ER PO SCH ×2 (08:12→19:16)
[2022-11-03] MEDS: Omeprazole 20 MG Cap.CR PO SCH (08:13)
[2022-11-03] MEDS: Metoprolol Succinate 25 MG Tab.ER PO SCH (08:13)
[2022-11-03] MEDS: Acetaminophen 650 MG Tab.ER PO SCH ×2 (08:14→19:16)
[2022-11-03] MEDS: Apixaban 5 MG Tab PO SCH ×2 (08:14→19:16)
[2022-11-03] MEDS: Acetaminophen/Codeine 300-30 MG Tab PO PRN (13:19)
[2022-11-03] MEDS: atorvaSTATin 80 MG Tab PO SCH (19:16)
[2022-11-03] MEDS: traZODone 50 MG Tab PO SCH (19:16)
[2022-11-03] MEDS: Acetaminophen/Codeine 300-30 MG Tab PO SCH (19:17)
[2022-11-03] MEDS: Latanoprost 0.005% Ophth Soln 2.5 ML Bottle EYERT SCH (19:17)
[2022-11-04] MEDS: Phenytoin 100 MG Cap.ER PO SCH ×2 (07:40→20:02)
[2022-11-04] MEDS: Apixaban 5 MG Tab PO SCH ×2 (07:52→20:02)
[2022-11-04] MEDS: metFORMIN 500 MG Tab PO SCH ×2 (07:52→17:39)
[2022-11-04] MEDS: Omeprazole 20 MG Cap.CR PO SCH (07:52)
[2022-11-04] MEDS: Acetaminophen 650 MG Tab.ER PO SCH ×2 (07:53→20:04)
[2022-11-04] MEDS: Digoxin 125 MCG Tab PO SCH (07:55)
[2022-11-04] MEDS: Metoprolol Succinate 25 MG Tab.ER PO SCH (07:55)
[2022-11-04] MEDS: HYDROmorphone 2 MG Tab PO PRN (16:19)
[2022-11-04] MEDS: atorvaSTATin 80 MG Tab PO SCH (20:02)
[2022-11-04] MEDS: Acetaminophen/Codeine 300-30 MG Tab PO SCH (20:03)
[2022-11-04] MEDS: traZODone 50 MG Tab PO SCH (20:03)
[2022-11-04] MEDS: Latanoprost 0.005% Ophth Soln 2.5 ML Bottle EYERT SCH (20:04)
[2022-11-05] MEDS: metFORMIN 500 MG Tab PO SCH ×2 (07:31→16:51)
[2022-11-05] MEDS: Digoxin 125 MCG Tab PO SCH (07:31)
[2022-11-05] MEDS: Metoprolol Succinate 25 MG Tab.ER PO SCH (07:31)
[2022-11-05] MEDS: Apixaban 5 MG Tab PO SCH ×2 (07:32→20:48)
[2022-11-05] MEDS: Acetaminophen 650 MG Tab.ER PO SCH ×2 (07:32→20:47)
[2022-11-05] MEDS: Phenytoin 100 MG Cap.ER PO SCH ×2 (07:32→20:48)
[2022-11-05] MEDS: Omeprazole 20 MG Cap.CR PO SCH (07:32)
[2022-11-05] MEDS: traZODone 50 MG Tab PO SCH (20:47)
[2022-11-05] MEDS: atorvaSTATin 80 MG Tab PO SCH (20:48)
[2022-11-05] MEDS: Latanoprost 0.005% Ophth Soln 2.5 ML Bottle EYERT SCH (20:48)
[2022-11-05] MEDS: Acetaminophen/Codeine 300-30 MG Tab PO SCH (20:49)
[2022-11-06] MEDS: Omeprazole 20 MG Cap.CR PO SCH (07:50)
[2022-11-06] MEDS: Acetaminophen 650 MG Tab.ER PO SCH ×2 (08:13→20:56)
[2022-11-06] MEDS: metFORMIN 500 MG Tab PO SCH ×2 (08:13→17:08)
[2022-11-06] MEDS: Phenytoin 100 MG Cap.ER PO SCH ×2 (08:14→20:55)
[2022-11-06] MEDS: Digoxin 125 MCG Tab PO SCH (08:14)
[2022-11-06] MEDS: Metoprolol Succinate 25 MG Tab.ER PO SCH (08:14)
[2022-11-06] MEDS: Apixaban 5 MG Tab PO SCH ×2 (08:15→20:55)
[2022-11-06] MEDS: HYDROmorphone 2 MG Tab PO PRN (13:04)
[2022-11-06] MEDS: atorvaSTATin 80 MG Tab PO SCH (20:55)
[2022-11-06] MEDS: traZODone 50 MG Tab PO SCH (20:56)
[2022-11-06] MEDS: Acetaminophen/Codeine 300-30 MG Tab PO SCH (20:56)
[2022-11-06] MEDS: Latanoprost 0.005% Ophth Soln 2.5 ML Bottle EYERT SCH (20:57)
[2022-11-07] MEDS: Digoxin 125 MCG Tab PO SCH (08:14)
[2022-11-07] MEDS: metFORMIN 500 MG Tab PO SCH ×2 (08:14→17:41)
[2022-11-07] MEDS: Phenytoin 100 MG Cap.ER PO SCH ×2 (08:14→19:47)
[2022-11-07] MEDS: Omeprazole 20 MG Cap.CR PO SCH (08:15)
[2022-11-07] MEDS: Apixaban 5 MG Tab PO SCH (08:15)
[2022-11-07] MEDS: Acetaminophen 650 MG Tab.ER PO SCH ×2 (08:15→19:48)
[2022-11-07] MEDS: Metoprolol Succinate 25 MG Tab.ER PO SCH (08:15)
[2022-11-07 10:00] LABS: APPEARANCE,URINE CLEAR (CLEAR); BILIRUBIN,URINE NEGATIVE (NEGATIVE); COLOR,URINE YELLOW; GLUCOSE,URINE NEGATIVE (NEGATIVE); KETONES,URINE NEGATIVE (NEGATIVE); LEUKOCYTE ESTERASE,URINE NEGATIVE (NEGATIVE); NITRITE,URINE NEGATIVE (NEGATIVE); OCCULT BLOOD,URINE NEGATIVE (NEGATIVE); PH,URINE 5.5 (5.0-8.0); PROTEIN,URINE 100 mg/dL (NEGATIVE); UROBILINOGEN,URINE 0.2 E.U./dL (0.2-1.0)
[2022-11-07 10:08] LABS: AMORPHOUS SEDIMENT,URINE OCCASIONAL /HPF; RBC,URINE NOT SEEN /HPF; WBC,URINE NOT SEEN /HPF
[2022-11-07] MEDS: Tamsulosin 0.4 MG Cap.ER PO SCH (12:28)
[2022-11-07] MEDS ORDERED: Warfarin 5 MG Tab PO ONE (13:10)
[2022-11-07] MEDS: Acetaminophen/Codeine 300-30 MG Tab PO SCH (19:47)
[2022-11-07] MEDS: traZODone 50 MG Tab PO SCH (19:49)
[2022-11-07] MEDS: Latanoprost 0.005% Ophth Soln 2.5 ML Bottle EYERT SCH (19:50)
[2022-11-07] MEDS: atorvaSTATin 80 MG Tab PO SCH (19:53)
[2022-11-08] MEDS: Metoprolol Succinate 25 MG Tab.ER PO SCH (07:43)
[2022-11-08] MEDS: metFORMIN 500 MG Tab PO SCH (07:44)
[2022-11-08] MEDS: Phenytoin 100 MG Cap.ER PO SCH (07:44)
[2022-11-08] MEDS: Tamsulosin 0.4 MG Cap.ER PO SCH (07:45)
[2022-11-08] MEDS: Acetaminophen 650 MG Tab.ER PO SCH (07:45)
[2022-11-08] MEDS: Digoxin 125 MCG Tab PO SCH (07:45)
[2022-11-08 07:46] VITALS: BP 141/63
[2022-11-08] MEDS: Omeprazole 20 MG Cap.CR PO SCH (07:46)
[2022-11-08] MEDS ORDERED: Enoxaparin 100 MG/1 ML Syringe SUBCUT SCH (08:00)
[2022-11-08 08:03] VITALS: PULSE 94
[2022-11-08 13:36] LABS: BASOPHILS ABSOLUTE AUTO 0.05 K/uL (0.02-0.10); BASOPHILS PERCENT AUTO 0.4 % (0.0-0.5); EOSINOPHILS ABSOLUTE AUTO 0.19 K/uL (0.04-0.40); EOSINOPHILS PERCENT AUTO 1.6 % (1.0-5.0); HEMATOCRIT 31.8 % (40.0-54.0); HEMOGLOBIN 9.9 g/dL (13.0-18.0); LYMPHOCYTES ABSOLUTE AUTO 2.45 K/uL (1.50-4.00); LYMPHOCYTES PERCENT AUTO 20.7 % (20.0-40.0); MEAN CORPUSCULAR HEMOGLOBIN 25.2 pg (27.0-32.0); MEAN CORPUSCULAR HGB CONC 31.1 g/dL (31.0-35.0); MEAN CORPUSCULAR VOLUME 81 fL (76-96); MEAN PLATELET VOLUME 8.7 fL (6.0-10.0); MONOCYTES PERCENT AUTO 13.5 % (3.0-10.0); NEUTROPHILS ABSOLUTE AUTO 7.54 K/uL (2.00-7.50); NEUTROPHILS PERCENT AUTO 63.8 % (45.0-70.0); PLATELET COUNT,PLT 550 K/uL (150-400); RED BLOOD CELL COUNT 3.93 M/uL (4.50-6.50); WHITE BLOOD CELL COUNT,WBC 11.8 K/uL (4.0-11.0)
[2022-11-08 13:55] LABS: ANION GAP 12.3 mmol/L (5.0-15.0); BUN/CREATININE RATIO 37.7 (6-25); CALCIUM 8.9 mg/dL (8.5-10.1); CARBON DIOXIDE,CO2 27.3 mmol/L (21.0-32.0); CREATININE 0.77 mg/dL (0.70-1.30); EST CRCL DRUG DOSING (CG) 71.36 mL/min; MAGNESIUM 1.4 mg/dL (1.8-2.4); POTASSIUM,K 4.6 mmol/L (3.5-5.1)
== END 2022-11-08 15:30 | disposition home or self-care (01) | DRG 556 ==
LOC: LB.MS 13:34
PROVIDERS: ADMIT Physician Assistant; ATTEND Physician Assistant
DX: M79.81 Nontraumatic hematoma of soft tissue (principal); S71.102D Unspecified open wound, left thigh, subsequent encounter; H91.90 Unspecified hearing loss, unspecified ear; E78.00 Pure hypercholesterolemia, unspecified; I10 Essential (primary) hypertension; J44.9 Chronic obstructive pulmonary disease, unspecified; K21.9 Gastro-esophageal reflux disease without esophagitis; M19.90 Unspecified osteoarthritis, unspecified site; F41.9 Anxiety disorder, unspecified; E11.9 Type 2 diabetes mellitus without complications; Z79.84 Long term (current) use of oral hypoglycemic drugs; Z98.890 Other specified postprocedural states; Z86.73 Personal history of transient ischemic attack (TIA), and cerebral infarction without residual deficits; Z88.8 Allergy status to other drugs, medicaments and biological substances; Z88.5 Allergy status to narcotic agent; Z88.0 Allergy status to penicillin
CPT/HCPCS: 36415; 80048; 80053; 81001; 82947; 83735; 85025; 85027; 85651; 86140; 86580; 87070; 87205; 92507-GN; 92523-GN; 92526-GN; 92610-GN; 97110-GO; 97110-GP; 97116-GP; 97161-GP; 97166-GO; 97530-GO; 97530-GP; 97535-GO; A9270-GY; J1650

== ENCOUNTER 2022-11-10 18:09 | Emergency (ER) | payer MEDICARE, BC ==
[2022-11-10 19:45] VITALS: BP 138/69; PULSE 96
== END 2022-11-10 19:38 | disposition home or self-care (01) ==
LOC: LB.ED 18:09
DX: T81.89XA Other complications of procedures, not elsewhere classified, initial encounter (principal); E11.9 Type 2 diabetes mellitus without complications; I10 Essential (primary) hypertension; J44.9 Chronic obstructive pulmonary disease, unspecified; E78.00 Pure hypercholesterolemia, unspecified; Z86.73 Personal history of transient ischemic attack (TIA), and cerebral infarction without residual deficits; Z79.899 Other long term (current) drug therapy; Z79.01 Long term (current) use of anticoagulants; Z79.84 Long term (current) use of oral hypoglycemic drugs; Z88.1 Allergy status to other antibiotic agents; Z88.0 Allergy status to penicillin; Z88.8 Allergy status to other drugs, medicaments and biological substances; Z88.5 Allergy status to narcotic agent
CPT/HCPCS: 99282

== ENCOUNTER 2022-11-12 13:50 | Inpatient (IN) | payer SELFPAY ==
[2022-11-12] MEDS ORDERED: Tuberculin, PPD 5 Units/0.1 ML 1 ML MDV IDERM ONE (15:00)
[2022-11-12] MEDS ORDERED: traZODone 50 MG Tab PO PRN (15:49)
[2022-11-12] MEDS: metFORMIN 500 MG Tab PO SCH (16:54)
[2022-11-12] MEDS ORDERED: metFORMIN 500 MG Tab PO SCH (17:00)
[2022-11-12] MEDS: Warfarin 5 MG Tab PO SCH (17:01)
[2022-11-12] MEDS: Phenytoin 100 MG Cap.ER PO SCH (19:37)
[2022-11-12] MEDS: atorvaSTATin 80 MG Tab PO SCH (19:37)
[2022-11-12] MEDS: Acetaminophen 650 MG Tab.ER PO SCH ×3 (19:38→19:40)
[2022-11-12] MEDS: traZODone 50 MG Tab PO PRN (19:38)
[2022-11-12] MEDS ORDERED: Phenytoin 100 MG Cap.ER PO SCH (20:00)
[2022-11-12] MEDS ORDERED: Latanoprost 0.005% Ophth Soln 2.5 ML Bottle EYERT SCH ×2 (20:00)
[2022-11-13] MEDS ORDERED: Omeprazole 20 MG Cap.CR PO SCH (07:00)
[2022-11-13] MEDS ORDERED: Digoxin 125 MCG Tab PO SCH (07:00)
[2022-11-13] MEDS ORDERED: Enoxaparin 100 MG/1 ML Syringe SUBCUT SCH (08:00)
[2022-11-13] MEDS ORDERED: Tamsulosin 0.4 MG Cap.ER PO SCH (08:00)
[2022-11-13] MEDS ORDERED: Warfarin 5 MG Tab PO SCH (08:00)
[2022-11-13] MEDS ORDERED: atorvaSTATin 80 MG Tab PO SCH ×2 (08:00→20:00)
[2022-11-13] MEDS ORDERED: Metoprolol Succinate 25 MG Tab.ER PO SCH (08:00)
[2022-11-13] MEDS: Omeprazole 20 MG Cap.CR PO SCH (09:48)
[2022-11-13] MEDS: Tamsulosin 0.4 MG Cap.ER PO SCH (09:48)
[2022-11-13] MEDS: Digoxin 125 MCG Tab PO SCH (09:48)
[2022-11-13] MEDS: Acetaminophen 650 MG Tab.ER PO SCH ×4 (09:49→19:48)
[2022-11-13] MEDS: Phenytoin 100 MG Cap.ER PO SCH ×2 (09:49→19:40)
[2022-11-13] MEDS: Metoprolol Succinate 50 MG Tab.ER PO SCH (09:50)
[2022-11-13] MEDS: Enoxaparin 100 MG/1 ML Syringe SUBCUT SCH (09:54)
[2022-11-13] MEDS: metFORMIN 500 MG Tab PO SCH ×2 (09:54→18:08)
[2022-11-13] MEDS: [UNRECOGNIZED DRUG - OTHER] PO SCH (09:55)
[2022-11-13] MEDS ORDERED: Sulfamethoxazole/Trimethoprim 800-160 MG Tab ONE (15:33)
[2022-11-13] MEDS: Sulfamethoxazole/Trimethoprim 800-160 MG Tab PO SCH (15:36)
[2022-11-13] MEDS: Warfarin 5 MG Tab PO SCH (18:08)
[2022-11-13] MEDS: traZODone 50 MG Tab PO PRN (19:41)
[2022-11-13] MEDS: atorvaSTATin 80 MG Tab PO SCH (19:45)
[2022-11-13] MEDS ORDERED: Latanoprost 0.005% Ophth Soln 2.5 ML Bottle EYERT SCH (20:00)
[2022-11-14] MEDS: traZODone 50 MG Tab PO PRN (01:46)
[2022-11-14] MEDS: Omeprazole 20 MG Cap.CR PO SCH (07:19)
[2022-11-14] MEDS: Digoxin 125 MCG Tab PO SCH (07:20)
[2022-11-14] MEDS: Tamsulosin 0.4 MG Cap.ER PO SCH (07:25)
[2022-11-14] MEDS: Phenytoin 100 MG Cap.ER PO SCH (07:25)
[2022-11-14] MEDS: Metoprolol Succinate 50 MG Tab.ER PO SCH (07:26)
[2022-11-14] MEDS: Acetaminophen 650 MG Tab.ER PO SCH (07:35)
[2022-11-14] MEDS: metFORMIN 500 MG Tab PO SCH (07:36)
[2022-11-14] MEDS: Sulfamethoxazole/Trimethoprim 800-160 MG Tab PO SCH (07:36)
[2022-11-14] MEDS: Enoxaparin 100 MG/1 ML Syringe SUBCUT SCH (07:37)
[2022-11-14] MEDS: [UNRECOGNIZED DRUG - OTHER] PO SCH (07:37)
[2022-11-14 10:46] VITALS: BP 144/75; PULSE 96
[2022-11-14] MEDS ORDERED: atorvaSTATin 80 MG Tab PO SCH (20:00)
== END 2022-11-14 09:15 | DRG 951 ==
LOC: LB.MS 15:39
PROVIDERS: ADMIT Physician Assistant; ATTEND Physician Assistant
DX: Z75.5 Holiday relief care (principal)
CPT/HCPCS: 82947; 86580; A9270-GY; J1650; U0002

== ENCOUNTER 2022-12-06 11:27 | Inpatient (IN) | payer MEDICARE, BC ==
[2022-12-09] MEDS ORDERED: Tuberculin, PPD 5 Units/0.1 ML 1 ML MDV IDERM ONE (17:27)
[2022-12-09] MEDS: metFORMIN 500 MG Tab PO SCH (18:52)
[2022-12-09] MEDS: Phenytoin 100 MG Cap.ER PO SCH (19:51)
[2022-12-09] MEDS: atorvaSTATin 80 MG Tab PO SCH (19:51)
[2022-12-09] MEDS: Acetaminophen 650 MG Tab.ER PO SCH (19:51)
[2022-12-09] MEDS: traZODone 50 MG Tab PO SCH (19:52)
[2022-12-09] MEDS: Latanoprost 0.005% Ophth Soln 2.5 ML Bottle EYERT SCH (19:52)
[2022-12-10] MEDS: Phenytoin 100 MG Cap.ER PO SCH ×2 (07:14→19:44)
[2022-12-10] MEDS: Furosemide 20 MG Tab PO SCH ×2 (07:15→17:57)
[2022-12-10] MEDS: Tamsulosin 0.4 MG Cap.ER PO SCH (07:15)
[2022-12-10] MEDS: Acetaminophen 650 MG Tab.ER PO SCH ×2 (07:15→19:44)
[2022-12-10] MEDS: Omeprazole 20 MG Cap.CR PO SCH (07:15)
[2022-12-10] MEDS: metFORMIN 500 MG Tab PO SCH ×2 (07:18→17:57)
[2022-12-10] MEDS: Metoprolol Succinate 25 MG Tab.ER PO SCH (07:18)
[2022-12-10] MEDS: Digoxin 125 MCG Tab PO SCH (07:19)
[2022-12-10] MEDS: Lisinopril 5 MG Tab PO SCH (07:19)
[2022-12-10] MEDS: Warfarin 3 MG Tab PO SCH (17:57)
[2022-12-10] MEDS: atorvaSTATin 80 MG Tab PO SCH (19:44)
[2022-12-10] MEDS: traZODone 50 MG Tab PO SCH (19:44)
[2022-12-10] MEDS: Latanoprost 0.005% Ophth Soln 2.5 ML Bottle EYERT SCH (20:46)
[2022-12-11] MEDS: Acetaminophen 650 MG Tab.ER PO SCH ×2 (08:42→20:01)
[2022-12-11] MEDS: Phenytoin 100 MG Cap.ER PO SCH ×2 (08:42→20:01)
[2022-12-11] MEDS: Digoxin 125 MCG Tab PO SCH (08:42)
[2022-12-11] MEDS: metFORMIN 500 MG Tab PO SCH ×2 (08:43→18:22)
[2022-12-11] MEDS: Tamsulosin 0.4 MG Cap.ER PO SCH (08:43)
[2022-12-11] MEDS: Omeprazole 20 MG Cap.CR PO SCH (08:43)
[2022-12-11] MEDS: Furosemide 20 MG Tab PO SCH ×2 (08:44→13:55)
[2022-12-11] MEDS: Metoprolol Succinate 25 MG Tab.ER PO SCH (08:44)
[2022-12-11] MEDS: Lisinopril 5 MG Tab PO SCH (08:44)
[2022-12-11] MEDS: atorvaSTATin 80 MG Tab PO SCH (20:01)
[2022-12-11] MEDS: Melatonin 10 MG Cap PO SCH (20:01)
[2022-12-11] MEDS: traZODone 50 MG Tab PO SCH (20:02)
[2022-12-11] MEDS: Warfarin 3 MG Tab PO SCH (20:02)
[2022-12-12] MEDS: Latanoprost 0.005% Ophth Soln 2.5 ML Bottle EYERT SCH ×2 (03:34→20:07)
[2022-12-12] MEDS: Tamsulosin 0.4 MG Cap.ER PO SCH (08:27)
[2022-12-12] MEDS: Digoxin 125 MCG Tab PO SCH (08:27)
[2022-12-12] MEDS: Acetaminophen 650 MG Tab.ER PO SCH ×2 (08:28→20:05)
[2022-12-12] MEDS: metFORMIN 500 MG Tab PO SCH ×2 (08:28→18:17)
[2022-12-12] MEDS: Metoprolol Succinate 25 MG Tab.ER PO SCH (08:29)
[2022-12-12] MEDS: Lisinopril 5 MG Tab PO SCH (08:30)
[2022-12-12] MEDS: Omeprazole 20 MG Cap.CR PO SCH (08:30)
[2022-12-12] MEDS: Phenytoin 100 MG Cap.ER PO SCH ×2 (08:30→20:05)
[2022-12-12] MEDS: Furosemide 20 MG Tab PO SCH ×2 (08:30→14:17)
[2022-12-12] MEDS: Warfarin 3 MG Tab PO SCH (18:17)
[2022-12-12] MEDS: traZODone 50 MG Tab PO SCH (20:05)
[2022-12-12] MEDS: Melatonin 10 MG Cap PO SCH (20:05)
[2022-12-12] MEDS: atorvaSTATin 80 MG Tab PO SCH (20:05)
[2022-12-13] MEDS: Phenytoin 100 MG Cap.ER PO SCH ×2 (09:25→19:32)
[2022-12-13] MEDS: Omeprazole 20 MG Cap.CR PO SCH (09:25)
[2022-12-13] MEDS: Tamsulosin 0.4 MG Cap.ER PO SCH (09:25)
[2022-12-13] MEDS: Furosemide 20 MG Tab PO SCH ×2 (09:25→14:51)
[2022-12-13] MEDS: metFORMIN 500 MG Tab PO SCH ×2 (09:25→16:34)
[2022-12-13] MEDS: Metoprolol Succinate 25 MG Tab.ER PO SCH (09:26)
[2022-12-13] MEDS: Lisinopril 5 MG Tab PO SCH (09:26)
[2022-12-13] MEDS: Acetaminophen 650 MG Tab.ER PO SCH ×2 (09:27→19:34)
[2022-12-13] MEDS: Digoxin 125 MCG Tab PO SCH (09:27)
[2022-12-13] MEDS: Warfarin 3 MG Tab PO SCH (17:02)
[2022-12-13] MEDS ORDERED: Hydrocortisone 1% Crm 30 GM Tube TOP ONE (18:08)
[2022-12-13] MEDS: Latanoprost 0.005% Ophth Soln 2.5 ML Bottle EYERT SCH (19:31)
[2022-12-13] MEDS: atorvaSTATin 80 MG Tab PO SCH (19:31)
[2022-12-13] MEDS: Melatonin 10 MG Cap PO SCH (19:32)
[2022-12-13] MEDS: traZODone 50 MG Tab PO SCH (19:32)
[2022-12-13] MEDS: Zinc Oxide 20% Oint 56.7 GM Tube TOP PRN (19:37)
[2022-12-14] MEDS: Omeprazole 20 MG Cap.CR PO SCH (07:40)
[2022-12-14] MEDS: Phenytoin 100 MG Cap.ER PO SCH ×2 (07:40→19:02)
[2022-12-14] MEDS: Tamsulosin 0.4 MG Cap.ER PO SCH (07:41)
[2022-12-14] MEDS: Acetaminophen 650 MG Tab.ER PO SCH ×3 (07:46→20:30)
[2022-12-14] MEDS: metFORMIN 500 MG Tab PO SCH ×2 (07:47→17:10)
[2022-12-14] MEDS: Metoprolol Succinate 25 MG Tab.ER PO SCH (07:48)
[2022-12-14] MEDS: Lisinopril 5 MG Tab PO SCH (07:48)
[2022-12-14] MEDS: Digoxin 125 MCG Tab PO SCH (07:48)
[2022-12-14] MEDS: Furosemide 20 MG Tab PO SCH ×2 (07:49→13:53)
[2022-12-14] MEDS: Warfarin 3 MG Tab PO SCH (17:10)
[2022-12-14] MEDS: atorvaSTATin 80 MG Tab PO SCH (19:02)
[2022-12-14] MEDS: traZODone 50 MG Tab PO SCH (19:02)
[2022-12-14] MEDS: Melatonin 10 MG Cap PO SCH (19:02)
[2022-12-14] MEDS: Latanoprost 0.005% Ophth Soln 2.5 ML Bottle EYERT SCH (20:42)
[2022-12-15] MEDS ORDERED: Acetaminophen 325 MG Tab ONE (02:19)
[2022-12-15] MEDS ORDERED: Acetaminophen 650 MG Tab.ER ONE (02:26)
[2022-12-15] MEDS: Acetaminophen 650 MG Tab.ER PO SCH ×3 (02:27→20:31)
[2022-12-15] MEDS: metFORMIN 500 MG Tab PO SCH ×2 (07:46→17:04)
[2022-12-15] MEDS: Metoprolol Succinate 25 MG Tab.ER PO SCH (07:47)
[2022-12-15] MEDS: Lisinopril 5 MG Tab PO SCH (07:48)
[2022-12-15] MEDS: Digoxin 125 MCG Tab PO SCH (07:48)
[2022-12-15] MEDS: Tamsulosin 0.4 MG Cap.ER PO SCH (07:49)
[2022-12-15] MEDS: Phenytoin 100 MG Cap.ER PO SCH ×2 (07:49→20:30)
[2022-12-15] MEDS: Omeprazole 20 MG Cap.CR PO SCH (07:50)
[2022-12-15] MEDS: Furosemide 20 MG Tab PO SCH ×2 (07:51→14:35)
[2022-12-15] MEDS: Warfarin 3 MG Tab PO SCH (17:04)
[2022-12-15] MEDS ORDERED: QUEtiapine 25 MG Tab PO SCH (20:00)
[2022-12-15] MEDS: Melatonin 10 MG Cap PO SCH (20:30)
[2022-12-15] MEDS: atorvaSTATin 80 MG Tab PO SCH (20:30)
[2022-12-15] MEDS: traZODone 50 MG Tab PO SCH (20:31)
[2022-12-15] MEDS: Latanoprost 0.005% Ophth Soln 2.5 ML Bottle EYERT SCH (20:32)
[2022-12-16] MEDS: Digoxin 125 MCG Tab PO SCH (08:15)
[2022-12-16] MEDS: Furosemide 20 MG Tab PO SCH ×2 (08:15→15:04)
[2022-12-16] MEDS: Acetaminophen 650 MG Tab.ER PO SCH ×2 (08:16→19:14)
[2022-12-16] MEDS: Omeprazole 20 MG Cap.CR PO SCH (08:16)
[2022-12-16] MEDS: metFORMIN 500 MG Tab PO SCH ×2 (08:16→17:14)
[2022-12-16] MEDS: Phenytoin 100 MG Cap.ER PO SCH ×2 (08:16→19:14)
[2022-12-16] MEDS: Tamsulosin 0.4 MG Cap.ER PO SCH (08:16)
[2022-12-16] MEDS: Metoprolol Succinate 25 MG Tab.ER PO SCH (08:16)
[2022-12-16] MEDS: Lisinopril 5 MG Tab PO SCH (08:17)
[2022-12-16 08:26] LABS: HEMATOCRIT 30.3 % (40.0-54.0); HEMOGLOBIN 9.3 g/dL (13.0-18.0); MEAN CORPUSCULAR HEMOGLOBIN 23.5 pg (27.0-32.0); MEAN CORPUSCULAR HGB CONC 30.7 g/dL (31.0-35.0); MEAN CORPUSCULAR VOLUME 77 fL (76-96); MEAN PLATELET VOLUME 9.1 fL (6.0-10.0); RED BLOOD CELL COUNT 3.95 M/uL (4.50-6.50); RED CELL DISTRIBUTION WIDTH 17.7 % (11.0-16.0); WHITE BLOOD CELL COUNT,WBC 9.8 K/uL (4.0-11.0)
[2022-12-16 08:32] LABS: A/G RATIO 0.6 (0.8-2.0); ALBUMIN 2.7 g/dL (3.4-5.0); ANION GAP 10.6 mmol/L (5.0-15.0); BILIRUBIN TOTAL 0.2 mg/dL (0.0-1.0); BUN/CREATININE RATIO 45.5 (6-25); C-REACTIVE PROTEIN 5.5 mg/L (0.0-3.0); CALCIUM 8.8 mg/dL (8.5-10.1); CARBON DIOXIDE,CO2 30.2 mmol/L (21.0-32.0); CREATININE 0.99 mg/dL (0.70-1.30); EST CRCL DRUG DOSING (CG) 55.64 mL/min; POTASSIUM,K 3.8 mmol/L (3.5-5.1); PROTEIN TOTAL,TP 6.9 g/dL (6.4-8.2)
[2022-12-16 08:39] LABS: PLATELET COUNT,PLT 645 K/uL (150-400)
[2022-12-16 09:22] LABS: SEDIMENTATION RATE MANUAL 41 mm/hr (0-20)
[2022-12-16 10:42] LABS: TARGET CELLS OCCASIONAL
[2022-12-16 10:43] LABS: ELLIPTOCYTES FEW; STOMATOCYTES OCCASIONAL
[2022-12-16 10:47] LABS: SMUDGE CELLS RARE
[2022-12-16] MEDS: Warfarin 3 MG Tab PO SCH (17:14)
[2022-12-16] MEDS: atorvaSTATin 80 MG Tab PO SCH (19:14)
[2022-12-16] MEDS: traZODone 100 MG Tab PO SCH (19:14)
[2022-12-16] MEDS: Melatonin 10 MG Cap PO SCH (19:14)
[2022-12-16] MEDS: Latanoprost 0.005% Ophth Soln 2.5 ML Bottle EYERT SCH (19:19)
[2022-12-17] MEDS: Tamsulosin 0.4 MG Cap.ER PO SCH (15:46)
[2022-12-17] MEDS: metFORMIN 500 MG Tab PO SCH ×2 (15:46→17:48)
[2022-12-17] MEDS: Furosemide 20 MG Tab PO SCH (15:46)
[2022-12-17] MEDS: Digoxin 125 MCG Tab PO SCH (15:46)
[2022-12-17] MEDS: Omeprazole 20 MG Cap.CR PO SCH (15:46)
[2022-12-17] MEDS: Lisinopril 5 MG Tab PO SCH (15:47)
[2022-12-17] MEDS: Phenytoin 100 MG Cap.ER PO SCH ×2 (15:47→19:18)
[2022-12-17] MEDS: Acetaminophen 650 MG Tab.ER PO SCH ×2 (15:47→19:18)
[2022-12-17] MEDS: Metoprolol Succinate 25 MG Tab.ER PO SCH (15:47)
[2022-12-17] MEDS: Warfarin 3 MG Tab PO SCH (17:48)
[2022-12-17] MEDS: Latanoprost 0.005% Ophth Soln 2.5 ML Bottle EYERT SCH (19:17)
[2022-12-17] MEDS: atorvaSTATin 80 MG Tab PO SCH (19:17)
[2022-12-17] MEDS: traZODone 100 MG Tab PO SCH (19:17)
[2022-12-17] MEDS: Melatonin 10 MG Cap PO SCH (19:17)
[2022-12-18] MEDS: Tamsulosin 0.4 MG Cap.ER PO SCH (08:03)
[2022-12-18] MEDS: Digoxin 125 MCG Tab PO SCH (08:03)
[2022-12-18] MEDS: Omeprazole 20 MG Cap.CR PO SCH (08:03)
[2022-12-18] MEDS: metFORMIN 500 MG Tab PO SCH ×2 (08:03→17:22)
[2022-12-18] MEDS: Metoprolol Succinate 25 MG Tab.ER PO SCH (08:04)
[2022-12-18] MEDS: Lisinopril 5 MG Tab PO SCH (08:04)
[2022-12-18] MEDS: Phenytoin 100 MG Cap.ER PO SCH ×2 (08:04→19:31)
[2022-12-18] MEDS: Acetaminophen 650 MG Tab.ER PO SCH ×2 (08:04→19:32)
[2022-12-18] MEDS: Furosemide 20 MG Tab PO SCH ×2 (08:04→13:47)
[2022-12-18] MEDS: Warfarin 3 MG Tab PO SCH (17:22)
[2022-12-18] MEDS: Melatonin 10 MG Cap PO SCH (19:31)
[2022-12-18] MEDS: traZODone 100 MG Tab PO SCH (19:31)
[2022-12-18] MEDS: Latanoprost 0.005% Ophth Soln 2.5 ML Bottle EYERT SCH (19:31)
[2022-12-18] MEDS: atorvaSTATin 80 MG Tab PO SCH (19:32)
[2022-12-19] MEDS: metFORMIN 500 MG Tab PO SCH ×2 (07:36→17:22)
[2022-12-19] MEDS: Acetaminophen 650 MG Tab.ER PO SCH ×2 (07:37→19:41)
[2022-12-19] MEDS: Tamsulosin 0.4 MG Cap.ER PO SCH (07:37)
[2022-12-19] MEDS: Furosemide 20 MG Tab PO SCH ×2 (07:38→14:14)
[2022-12-19] MEDS: Digoxin 125 MCG Tab PO SCH (07:39)
[2022-12-19] MEDS: Phenytoin 100 MG Cap.ER PO SCH ×2 (07:39→19:42)
[2022-12-19] MEDS: Metoprolol Succinate 25 MG Tab.ER PO SCH (07:41)
[2022-12-19] MEDS: Omeprazole 20 MG Cap.CR PO SCH (07:41)
[2022-12-19] MEDS: Lisinopril 5 MG Tab PO SCH (07:42)
[2022-12-19 10:30] LABS: INFLUENZA A NAA NEGATIVE (NEGATIVE); INFLUENZA B NAA NEGATIVE (NEGATIVE)
[2022-12-19 10:31] LABS: CORONAVIRUS COVID-19 NAA NEGATIVE (NEGATIVE)
[2022-12-19] MEDS: Warfarin 3 MG Tab PO SCH (17:22)
[2022-12-19] MEDS: Latanoprost 0.005% Ophth Soln 2.5 ML Bottle EYERT SCH (19:41)
[2022-12-19] MEDS: traZODone 100 MG Tab PO SCH (19:42)
[2022-12-19] MEDS: atorvaSTATin 80 MG Tab PO SCH (19:42)
[2022-12-19] MEDS: Melatonin 10 MG Cap PO SCH (19:42)
[2022-12-20] MEDS: Metoprolol Succinate 25 MG Tab.ER PO SCH (07:37)
[2022-12-20] MEDS: Lisinopril 5 MG Tab PO SCH (07:37)
[2022-12-20] MEDS: Digoxin 125 MCG Tab PO SCH (07:38)
[2022-12-20] MEDS: Phenytoin 100 MG Cap.ER PO SCH ×2 (07:38→19:12)
[2022-12-20] MEDS: Tamsulosin 0.4 MG Cap.ER PO SCH (07:39)
[2022-12-20] MEDS: Furosemide 20 MG Tab PO SCH ×2 (07:39→14:32)
[2022-12-20] MEDS: Acetaminophen 650 MG Tab.ER PO SCH ×2 (07:39→19:12)
[2022-12-20] MEDS: metFORMIN 500 MG Tab PO SCH ×2 (07:39→16:41)
[2022-12-20] MEDS: Omeprazole 20 MG Cap.CR PO SCH (07:40)
[2022-12-20] MEDS: Calcium Polycarbophil 625 MG Tab PO SCH (11:09)
[2022-12-20] MEDS: Warfarin 3 MG Tab PO SCH (17:44)
[2022-12-20] MEDS: traZODone 100 MG Tab PO SCH (17:44)
[2022-12-20] MEDS: Melatonin 10 MG Cap PO SCH (19:12)
[2022-12-20] MEDS: atorvaSTATin 80 MG Tab PO SCH (19:12)
[2022-12-20] MEDS: Psyllium Husk Powder Sugar Free 5.85 GM Packet PO SCH (19:12)
[2022-12-20] MEDS: Latanoprost 0.005% Ophth Soln 2.5 ML Bottle EYERT SCH (19:14)
[2022-12-21] MEDS: Lisinopril 5 MG Tab PO SCH (08:29)
[2022-12-21] MEDS: Digoxin 125 MCG Tab PO SCH (08:29)
[2022-12-21] MEDS: Furosemide 20 MG Tab PO SCH ×2 (08:30→14:56)
[2022-12-21] MEDS: metFORMIN 500 MG Tab PO SCH ×2 (08:30→17:19)
[2022-12-21] MEDS: Tamsulosin 0.4 MG Cap.ER PO SCH (08:30)
[2022-12-21] MEDS: Metoprolol Succinate 25 MG Tab.ER PO SCH (08:31)
[2022-12-21] MEDS: Acetaminophen 650 MG Tab.ER PO SCH ×2 (08:31→20:12)
[2022-12-21] MEDS: Phenytoin 100 MG Cap.ER PO SCH ×2 (08:32→20:11)
[2022-12-21] MEDS: Omeprazole 20 MG Cap.CR PO SCH (08:35)
[2022-12-21] MEDS: Warfarin 3 MG Tab PO SCH (17:19)
[2022-12-21] MEDS: traZODone 100 MG Tab PO SCH (17:20)
[2022-12-21] MEDS: Melatonin 10 MG Cap PO SCH (20:11)
[2022-12-21] MEDS: atorvaSTATin 80 MG Tab PO SCH (20:11)
[2022-12-21] MEDS: Psyllium Husk Powder Sugar Free 5.85 GM Packet PO SCH (20:11)
[2022-12-21] MEDS: Latanoprost 0.005% Ophth Soln 2.5 ML Bottle EYERT SCH (20:15)
[2022-12-22] MEDS: Tamsulosin 0.4 MG Cap.ER PO SCH (07:29)
[2022-12-22] MEDS: Digoxin 125 MCG Tab PO SCH (07:29)
[2022-12-22] MEDS: Furosemide 20 MG Tab PO SCH ×2 (07:30→15:39)
[2022-12-22] MEDS: Phenytoin 100 MG Cap.ER PO SCH ×2 (07:30→19:31)
[2022-12-22] MEDS: metFORMIN 500 MG Tab PO SCH ×2 (07:30→17:14)
[2022-12-22] MEDS: Acetaminophen 650 MG Tab.ER PO SCH ×2 (07:31→19:30)
[2022-12-22] MEDS: Lisinopril 5 MG Tab PO SCH (07:31)
[2022-12-22] MEDS: Metoprolol Succinate 25 MG Tab.ER PO SCH (07:32)
[2022-12-22] MEDS: Omeprazole 20 MG Cap.CR PO SCH (07:33)
[2022-12-22] MEDS: traZODone 100 MG Tab PO SCH (17:14)
[2022-12-22] MEDS: Zinc Oxide 20% Oint 56.7 GM Tube TOP PRN (17:15)
[2022-12-22] MEDS: Warfarin 3 MG Tab PO SCH (17:15)
[2022-12-22] MEDS: Psyllium Husk Powder Sugar Free 5.85 GM Packet PO SCH (19:30)
[2022-12-22] MEDS: atorvaSTATin 80 MG Tab PO SCH (19:30)
[2022-12-22] MEDS: Latanoprost 0.005% Ophth Soln 2.5 ML Bottle EYERT SCH (19:30)
[2022-12-22] MEDS: Melatonin 10 MG Cap PO SCH (19:31)
[2022-12-23] MEDS: Metoprolol Succinate 25 MG Tab.ER PO SCH (07:25)
[2022-12-23] MEDS: Tamsulosin 0.4 MG Cap.ER PO SCH (07:25)
[2022-12-23] MEDS: Acetaminophen 650 MG Tab.ER PO SCH ×2 (07:26→19:24)
[2022-12-23] MEDS: Furosemide 20 MG Tab PO SCH ×2 (07:26→14:40)
[2022-12-23] MEDS: Digoxin 125 MCG Tab PO SCH (07:26)
[2022-12-23] MEDS: Lisinopril 5 MG Tab PO SCH (07:26)
[2022-12-23] MEDS: Phenytoin 100 MG Cap.ER PO SCH ×2 (07:26→19:28)
[2022-12-23] MEDS: metFORMIN 500 MG Tab PO SCH ×2 (07:26→17:36)
[2022-12-23] MEDS: Omeprazole 20 MG Cap.CR PO SCH (07:26)
[2022-12-23] MEDS: traZODone 100 MG Tab PO SCH (17:36)
[2022-12-23] MEDS: Warfarin 3 MG Tab PO SCH (17:36)
[2022-12-23] MEDS: Psyllium Husk Powder Sugar Free 5.85 GM Packet PO SCH (19:24)
[2022-12-23] MEDS: Melatonin 10 MG Cap PO SCH (19:24)
[2022-12-23] MEDS: atorvaSTATin 80 MG Tab PO SCH (19:24)
[2022-12-23] MEDS: Latanoprost 0.005% Ophth Soln 2.5 ML Bottle EYERT SCH (19:25)
[2022-12-24] MEDS: metFORMIN 500 MG Tab PO SCH ×2 (08:33→17:24)
[2022-12-24] MEDS: Digoxin 125 MCG Tab PO SCH (08:33)
[2022-12-24] MEDS: Omeprazole 20 MG Cap.CR PO SCH (08:33)
[2022-12-24] MEDS: Metoprolol Succinate 25 MG Tab.ER PO SCH (08:33)
[2022-12-24] MEDS: Furosemide 20 MG Tab PO SCH ×2 (08:34→13:00)
[2022-12-24] MEDS: Lisinopril 5 MG Tab PO SCH (08:34)
[2022-12-24] MEDS: Acetaminophen 650 MG Tab.ER PO SCH ×2 (08:34→19:22)
[2022-12-24] MEDS: Tamsulosin 0.4 MG Cap.ER PO SCH (08:34)
[2022-12-24] MEDS: Calcium Polycarbophil 625 MG Tab PO SCH (08:35)
[2022-12-24] MEDS: Phenytoin 100 MG Cap.ER PO SCH ×2 (08:35→19:22)
[2022-12-24 10:07] LABS: BASOPHILS ABSOLUTE AUTO 0.05 K/uL (0.02-0.10); BASOPHILS PERCENT AUTO 0.4 % (0.0-0.5); EOSINOPHILS ABSOLUTE AUTO 0.04 K/uL (0.04-0.40); EOSINOPHILS PERCENT AUTO 0.3 % (1.0-5.0); HEMATOCRIT 29.2 % (40.0-54.0); HEMOGLOBIN 8.9 g/dL (13.0-18.0); LYMPHOCYTES ABSOLUTE AUTO 2.18 K/uL (1.50-4.00); LYMPHOCYTES PERCENT AUTO 17.6 % (20.0-40.0); MEAN CORPUSCULAR HEMOGLOBIN 23.1 pg (27.0-32.0); MEAN CORPUSCULAR HGB CONC 30.5 g/dL (31.0-35.0); MEAN CORPUSCULAR VOLUME 76 fL (76-96); MEAN PLATELET VOLUME 9.2 fL (6.0-10.0); MONOCYTES ABSOLUTE AUTO 1.29 K/uL (0.20-0.80); MONOCYTES PERCENT AUTO 10.4 % (3.0-10.0); NEUTROPHILS ABSOLUTE AUTO 8.84 K/uL (2.00-7.50); NEUTROPHILS PERCENT AUTO 71.3 % (45.0-70.0); PLATELET COUNT,PLT 454 K/uL (150-400); RED BLOOD CELL COUNT 3.86 M/uL (4.50-6.50); RED CELL DISTRIBUTION WIDTH 17.7 % (11.0-16.0); WHITE BLOOD CELL COUNT,WBC 12.4 K/uL (4.0-11.0)
[2022-12-24 10:25] LABS: APPEARANCE,URINE SLIGHTLY CLOUDY (CLEAR); BILIRUBIN,URINE NEGATIVE (NEGATIVE); COLOR,URINE YELLOW; GLUCOSE,URINE NEGATIVE (NEGATIVE); KETONES,URINE NEGATIVE (NEGATIVE); LEUKOCYTE ESTERASE,URINE NEGATIVE (NEGATIVE); NITRITE,URINE NEGATIVE (NEGATIVE); OCCULT BLOOD,URINE NEGATIVE (NEGATIVE); PROTEIN,URINE 100 mg/dL (NEGATIVE); UROBILINOGEN,URINE 0.2 E.U./dL (0.2-1.0)
[2022-12-24 10:29] LABS: RBC,URINE 0-5 /HPF; SQUAMOUS EPITHELIAL CELLS,UR RARE /HPF; WBC,URINE 0-5 /HPF
[2022-12-24 10:30] LABS: A/G RATIO 0.7 (0.8-2.0); ALBUMIN 2.8 g/dL (3.4-5.0); ANION GAP 11.5 mmol/L (5.0-15.0); BILIRUBIN TOTAL 0.1 mg/dL (0.0-1.0); BUN/CREATININE RATIO 23.5 (6-25); CARBON DIOXIDE,CO2 30.7 mmol/L (21.0-32.0); CREATININE 1.02 mg/dL (0.70-1.30); MAGNESIUM 1.5 mg/dL (1.8-2.4); POTASSIUM,K 5.2 mmol/L (3.5-5.1)
[2022-12-24] MEDS: Magnesium Oxide 400 MG Tab PO SCH (13:01)
[2022-12-24] MEDS: Multivitamins with Iron/Calcium/Folic Acid/Minerals Tab PO SCH (13:01)
[2022-12-24] MEDS: traZODone 100 MG Tab PO SCH (17:24)
[2022-12-24] MEDS: Warfarin 3 MG Tab PO SCH (17:25)
[2022-12-24] MEDS: atorvaSTATin 80 MG Tab PO SCH (19:21)
[2022-12-24] MEDS: Melatonin 10 MG Cap PO SCH (19:22)
[2022-12-24] MEDS: Psyllium Husk Powder Sugar Free 5.85 GM Packet PO SCH (19:23)
[2022-12-24] MEDS: Latanoprost 0.005% Ophth Soln 2.5 ML Bottle EYERT SCH (19:23)
[2022-12-25] MEDS: Digoxin 125 MCG Tab PO SCH (07:29)
[2022-12-25] MEDS: Omeprazole 20 MG Cap.CR PO SCH (07:29)
[2022-12-25] MEDS: Calcium Polycarbophil 625 MG Tab PO SCH (07:29)
[2022-12-25] MEDS: Magnesium Oxide 400 MG Tab PO SCH (07:30)
[2022-12-25] MEDS: Furosemide 40 MG Tab PO SCH (07:30)
[2022-12-25] MEDS: metFORMIN 500 MG Tab PO SCH ×2 (07:30→17:30)
[2022-12-25] MEDS: Phenytoin 100 MG Cap.ER PO SCH ×2 (07:30→19:26)
[2022-12-25] MEDS: Tamsulosin 0.4 MG Cap.ER PO SCH (07:30)
[2022-12-25] MEDS: Multivitamins with Iron/Calcium/Folic Acid/Minerals Tab PO SCH (07:31)
[2022-12-25] MEDS: Lisinopril 5 MG Tab PO SCH (07:31)
[2022-12-25] MEDS: Acetaminophen 650 MG Tab.ER PO SCH ×2 (07:31→19:26)
[2022-12-25] MEDS: Metoprolol Succinate 25 MG Tab.ER PO SCH (07:31)
[2022-12-25] MEDS: traZODone 100 MG Tab PO SCH (17:29)
[2022-12-25] MEDS: Warfarin 3 MG Tab PO SCH (17:31)
[2022-12-25] MEDS ORDERED: FLU (Fluad Quad) 2023-24(65UP)/MF59C/PF 60 MCG/0.5 ML Syringe IM ONE (18:00)
[2022-12-25] MEDS: Melatonin 10 MG Cap PO SCH (19:26)
[2022-12-25] MEDS: Psyllium Husk Powder Sugar Free 5.85 GM Packet PO SCH (19:26)
[2022-12-25] MEDS: atorvaSTATin 80 MG Tab PO SCH (19:26)
[2022-12-25] MEDS: Latanoprost 0.005% Ophth Soln 2.5 ML Bottle EYERT SCH (19:29)
[2022-12-26 03:10] LABS: VITAMIN D 25 OH 23 ng/mL (30-80)
[2022-12-26] MEDS: Omeprazole 20 MG Cap.CR PO SCH (07:30)
[2022-12-26] MEDS: Digoxin 125 MCG Tab PO SCH (07:30)
[2022-12-26] MEDS: Calcium Polycarbophil 625 MG Tab PO SCH (07:30)
[2022-12-26] MEDS: Lisinopril 5 MG Tab PO SCH (07:31)
[2022-12-26] MEDS: Furosemide 40 MG Tab PO SCH (07:31)
[2022-12-26] MEDS: Magnesium Oxide 400 MG Tab PO SCH (07:31)
[2022-12-26] MEDS: Phenytoin 100 MG Cap.ER PO SCH ×2 (07:31→19:03)
[2022-12-26] MEDS: metFORMIN 500 MG Tab PO SCH ×2 (07:31→17:18)
[2022-12-26] MEDS: Tamsulosin 0.4 MG Cap.ER PO SCH (07:31)
[2022-12-26] MEDS: Multivitamins with Iron/Calcium/Folic Acid/Minerals Tab PO SCH (07:32)
[2022-12-26] MEDS: Acetaminophen 650 MG Tab.ER PO SCH ×2 (07:32→19:02)
[2022-12-26] MEDS: Metoprolol Succinate 25 MG Tab.ER PO SCH (07:32)
[2022-12-26] MEDS: traZODone 100 MG Tab PO SCH (17:18)
[2022-12-26] MEDS: Warfarin 3 MG Tab PO SCH (17:18)
[2022-12-26] MEDS: atorvaSTATin 80 MG Tab PO SCH (19:03)
[2022-12-26] MEDS: Melatonin 10 MG Cap PO SCH (19:03)
[2022-12-26] MEDS: Psyllium Husk Powder Sugar Free 5.85 GM Packet PO SCH (19:03)
[2022-12-26] MEDS: Latanoprost 0.005% Ophth Soln 2.5 ML Bottle EYERT SCH (19:05)
[2022-12-27] MEDS: Calcium Polycarbophil 625 MG Tab PO SCH (07:32)
[2022-12-27] MEDS: Multivitamins with Iron/Calcium/Folic Acid/Minerals Tab PO SCH (07:33)
[2022-12-27] MEDS: Cholecalciferol (Vitamin D3) 2,000 Unit Cap PO SCH (07:33)
[2022-12-27] MEDS: metFORMIN 500 MG Tab PO SCH ×2 (07:33→17:21)
[2022-12-27] MEDS: Magnesium Oxide 400 MG Tab PO SCH (07:34)
[2022-12-27] MEDS: Digoxin 125 MCG Tab PO SCH (07:34)
[2022-12-27] MEDS: Phenytoin 100 MG Cap.ER PO SCH ×2 (07:34→19:07)
[2022-12-27] MEDS: Furosemide 40 MG Tab PO SCH (07:35)
[2022-12-27] MEDS: Acetaminophen 650 MG Tab.ER PO SCH ×2 (07:35→19:07)
[2022-12-27] MEDS: Omeprazole 20 MG Cap.CR PO SCH (07:36)
[2022-12-27] MEDS: Tamsulosin 0.4 MG Cap.ER PO SCH (07:36)
[2022-12-27] MEDS: Metoprolol Succinate 25 MG Tab.ER PO SCH (07:36)
[2022-12-27] MEDS: Lisinopril 5 MG Tab PO SCH (07:36)
[2022-12-27] MEDS: Warfarin 3 MG Tab PO SCH (17:21)
[2022-12-27] MEDS: Melatonin 10 MG Cap PO SCH (19:07)
[2022-12-27] MEDS: atorvaSTATin 80 MG Tab PO SCH (19:07)
[2022-12-27] MEDS: QUEtiapine 25 MG Tab PO SCH (19:07)
[2022-12-27] MEDS: Latanoprost 0.005% Ophth Soln 2.5 ML Bottle EYERT SCH (19:08)
[2022-12-27] MEDS: Psyllium Husk Powder Sugar Free 5.85 GM Packet PO SCH (19:16)
[2022-12-28] MEDS: Acetaminophen 325 MG Tab PO PRN (01:16)
[2022-12-28] MEDS: Phenytoin 100 MG Cap.ER PO SCH ×2 (08:17→19:14)
[2022-12-28] MEDS: Metoprolol Succinate 25 MG Tab.ER PO SCH (08:17)
[2022-12-28] MEDS: metFORMIN 500 MG Tab PO SCH ×2 (08:18→17:08)
[2022-12-28] MEDS: Acetaminophen 650 MG Tab.ER PO SCH ×2 (08:18→19:14)
[2022-12-28] MEDS: Magnesium Oxide 400 MG Tab PO SCH (08:19)
[2022-12-28] MEDS: Tamsulosin 0.4 MG Cap.ER PO SCH (08:19)
[2022-12-28] MEDS: Calcium Polycarbophil 625 MG Tab PO SCH (08:19)
[2022-12-28] MEDS: Cholecalciferol (Vitamin D3) 2,000 Unit Cap PO SCH (08:19)
[2022-12-28] MEDS: Lisinopril 5 MG Tab PO SCH (08:20)
[2022-12-28] MEDS: Digoxin 125 MCG Tab PO SCH (08:20)
[2022-12-28] MEDS: Furosemide 40 MG Tab PO SCH (08:20)
[2022-12-28] MEDS: Multivitamins with Iron/Calcium/Folic Acid/Minerals Tab PO SCH (08:20)
[2022-12-28] MEDS: Omeprazole 20 MG Cap.CR PO SCH (08:20)
[2022-12-28] MEDS: Warfarin 3 MG Tab PO SCH (17:08)
[2022-12-28] MEDS: Melatonin 10 MG Cap PO SCH (19:14)
[2022-12-28] MEDS: atorvaSTATin 80 MG Tab PO SCH (19:14)
[2022-12-28] MEDS: QUEtiapine 25 MG Tab PO SCH (19:14)
[2022-12-28] MEDS: Psyllium Husk Powder Sugar Free 5.85 GM Packet PO SCH (19:15)
[2022-12-28] MEDS: Latanoprost 0.005% Ophth Soln 2.5 ML Bottle EYERT SCH (19:15)
[2022-12-29] MEDS: Calcium Polycarbophil 625 MG Tab PO SCH (07:32)
[2022-12-29] MEDS: Omeprazole 20 MG Cap.CR PO SCH (07:32)
[2022-12-29] MEDS: Furosemide 40 MG Tab PO SCH (07:32)
[2022-12-29] MEDS: Magnesium Oxide 400 MG Tab PO SCH (07:33)
[2022-12-29] MEDS: Cholecalciferol (Vitamin D3) 2,000 Unit Cap PO SCH (07:33)
[2022-12-29] MEDS: Tamsulosin 0.4 MG Cap.ER PO SCH (07:33)
[2022-12-29] MEDS: metFORMIN 500 MG Tab PO SCH ×2 (07:33→17:18)
[2022-12-29] MEDS: Multivitamins with Iron/Calcium/Folic Acid/Minerals Tab PO SCH (07:33)
[2022-12-29] MEDS: Acetaminophen 650 MG Tab.ER PO SCH ×2 (07:33→19:07)
[2022-12-29] MEDS: Phenytoin 100 MG Cap.ER PO SCH ×2 (07:34→19:07)
[2022-12-29] MEDS: Lisinopril 5 MG Tab PO SCH (07:34)
[2022-12-29] MEDS: Digoxin 125 MCG Tab PO SCH (07:34)
[2022-12-29] MEDS: Metoprolol Succinate 25 MG Tab.ER PO SCH (07:35)
[2022-12-29] MEDS: Warfarin 3 MG Tab PO SCH (17:19)
[2022-12-29] MEDS: atorvaSTATin 80 MG Tab PO SCH (19:07)
[2022-12-29] MEDS: Melatonin 10 MG Cap PO SCH (19:07)
[2022-12-29] MEDS: QUEtiapine 25 MG Tab PO SCH (19:07)
[2022-12-29] MEDS: Psyllium Husk Powder Sugar Free 5.85 GM Packet PO SCH (19:07)
[2022-12-29] MEDS: Latanoprost 0.005% Ophth Soln 2.5 ML Bottle EYERT SCH (19:08)
[2022-12-30] MEDS ORDERED: Zolpidem 5 MG Tab PO PRN (06:20)
[2022-12-30] MEDS: metFORMIN 500 MG Tab PO SCH ×2 (08:16→17:40)
[2022-12-30] MEDS: Omeprazole 20 MG Cap.CR PO SCH (08:16)
[2022-12-30] MEDS: Calcium Polycarbophil 625 MG Tab PO SCH (08:16)
[2022-12-30] MEDS: Digoxin 125 MCG Tab PO SCH (08:16)
[2022-12-30] MEDS: Tamsulosin 0.4 MG Cap.ER PO SCH (08:16)
[2022-12-30] MEDS: Lisinopril 5 MG Tab PO SCH (08:17)
[2022-12-30] MEDS: Magnesium Oxide 400 MG Tab PO SCH (08:17)
[2022-12-30] MEDS: Furosemide 40 MG Tab PO SCH (08:17)
[2022-12-30] MEDS: Phenytoin 100 MG Cap.ER PO SCH ×2 (08:17→19:17)
[2022-12-30] MEDS: Multivitamins with Iron/Calcium/Folic Acid/Minerals Tab PO SCH (08:17)
[2022-12-30] MEDS: Metoprolol Succinate 25 MG Tab.ER PO SCH (08:17)
[2022-12-30] MEDS: Acetaminophen 650 MG Tab.ER PO SCH ×2 (08:18→19:17)
[2022-12-30] MEDS: Cholecalciferol (Vitamin D3) 2,000 Unit Cap PO SCH (08:18)
[2022-12-30] MEDS: Warfarin 3 MG Tab PO SCH (17:40)
[2022-12-30] MEDS: Latanoprost 0.005% Ophth Soln 2.5 ML Bottle EYERT SCH (19:16)
[2022-12-30] MEDS: Psyllium Husk Powder Sugar Free 5.85 GM Packet PO SCH (19:17)
[2022-12-30] MEDS: atorvaSTATin 80 MG Tab PO SCH (19:17)
[2022-12-30] MEDS: Melatonin 10 MG Cap PO SCH (19:17)
[2022-12-30] MEDS ORDERED: Zolpidem 5 MG Tab PO ONE (22:15)
[2022-12-31] MEDS: Magnesium Oxide 400 MG Tab PO SCH ×2 (05:45→19:22)
[2022-12-31] MEDS: Cholecalciferol (Vitamin D3) 2,000 Unit Cap PO SCH ×2 (05:45→19:23)
[2022-12-31] MEDS: Tamsulosin 0.4 MG Cap.ER PO SCH ×2 (05:45→19:22)
[2022-12-31] MEDS: Lisinopril 5 MG Tab PO SCH ×2 (05:45→19:22)
[2022-12-31] MEDS: Calcium Polycarbophil 625 MG Tab PO SCH ×2 (05:46→19:22)
[2022-12-31] MEDS: Digoxin 125 MCG Tab PO SCH ×2 (05:46→19:21)
[2022-12-31] MEDS: Acetaminophen 650 MG Tab.ER PO SCH ×3 (05:47→20:18)
[2022-12-31] MEDS: Phenytoin 100 MG Cap.ER PO SCH ×3 (05:47→20:18)
[2022-12-31] MEDS: Multivitamins with Iron/Calcium/Folic Acid/Minerals Tab PO SCH ×2 (05:47→19:23)
[2022-12-31] MEDS: Furosemide 40 MG Tab PO SCH ×2 (05:48→19:22)
[2022-12-31] MEDS: Metoprolol Succinate 25 MG Tab.ER PO SCH ×2 (05:48→19:23)
[2022-12-31] MEDS: Omeprazole 20 MG Cap.CR PO SCH ×2 (05:49→19:22)
[2022-12-31] MEDS: metFORMIN 500 MG Tab PO SCH ×3 (05:50→19:22)
[2022-12-31] MEDS: Warfarin 3 MG Tab PO SCH (17:28)
[2022-12-31] MEDS: Melatonin 10 MG Cap PO SCH (20:18)
[2022-12-31] MEDS: atorvaSTATin 80 MG Tab PO SCH (20:18)
[2022-12-31] MEDS: Zolpidem 5 MG Tab PO PRN (20:18)
[2022-12-31] MEDS: Psyllium Husk Powder Sugar Free 5.85 GM Packet PO SCH (20:21)
[2022-12-31] MEDS: Latanoprost 0.005% Ophth Soln 2.5 ML Bottle EYERT SCH (20:21)
[2022-12-31] MEDS ORDERED: diphenhydrAMINE 25 MG Cap PO ONE (21:45)
[2023-01-01] MEDS: Acetaminophen 325 MG Tab PO PRN (02:56)
[2023-01-01] MEDS: Magnesium Oxide 400 MG Tab PO SCH (07:20)
[2023-01-01] MEDS: Cholecalciferol (Vitamin D3) 2,000 Unit Cap PO SCH (07:21)
[2023-01-01] MEDS: metFORMIN 500 MG Tab PO SCH ×2 (07:21→17:51)
[2023-01-01] MEDS: Multivitamins with Iron/Calcium/Folic Acid/Minerals Tab PO SCH (07:21)
[2023-01-01] MEDS: Acetaminophen 650 MG Tab.ER PO SCH ×2 (07:21→19:10)
[2023-01-01] MEDS: Omeprazole 20 MG Cap.CR PO SCH (07:22)
[2023-01-01] MEDS: Tamsulosin 0.4 MG Cap.ER PO SCH (07:22)
[2023-01-01] MEDS: Calcium Polycarbophil 625 MG Tab PO SCH (07:22)
[2023-01-01] MEDS: Digoxin 125 MCG Tab PO SCH (07:23)
[2023-01-01] MEDS: Lisinopril 5 MG Tab PO SCH (07:23)
[2023-01-01] MEDS: Metoprolol Succinate 25 MG Tab.ER PO SCH (07:23)
[2023-01-01] MEDS: Phenytoin 100 MG Cap.ER PO SCH ×2 (07:25→19:10)
[2023-01-01] MEDS: Furosemide 20 MG Tab PO SCH (08:20)
[2023-01-01] MEDS: Warfarin 3 MG Tab PO SCH (17:51)
[2023-01-01] MEDS: Melatonin 10 MG Cap PO SCH (19:10)
[2023-01-01] MEDS: Zolpidem 5 MG Tab PO PRN (19:10)
[2023-01-01] MEDS: atorvaSTATin 80 MG Tab PO SCH (19:11)
[2023-01-01] MEDS: Psyllium Husk Powder Sugar Free 5.85 GM Packet PO SCH (19:13)
[2023-01-01] MEDS: Latanoprost 0.005% Ophth Soln 2.5 ML Bottle EYERT SCH (19:13)
[2023-01-01] MEDS ORDERED: Latanoprost 0.005% Ophth Soln 2.5 ML Bottle EYERT SCH (20:00)
[2023-01-01] MEDS ORDERED: ALPRAZolam 0.25 MG Tab PO ONE (20:38)
[2023-01-02] MEDS: Multivitamins with Iron/Calcium/Folic Acid/Minerals Tab PO SCH (08:10)
[2023-01-02] MEDS: Phenytoin 100 MG Cap.ER PO SCH ×2 (08:10→20:45)
[2023-01-02] MEDS: Omeprazole 20 MG Cap.CR PO SCH (08:10)
[2023-01-02] MEDS: Digoxin 125 MCG Tab PO SCH (08:10)
[2023-01-02] MEDS: Metoprolol Succinate 25 MG Tab.ER PO SCH (08:10)
[2023-01-02] MEDS: Lisinopril 5 MG Tab PO SCH (08:10)
[2023-01-02] MEDS: Furosemide 20 MG Tab PO SCH (08:10)
[2023-01-02] MEDS: Acetaminophen 650 MG Tab.ER PO SCH ×2 (08:11→20:46)
[2023-01-02] MEDS: Cholecalciferol (Vitamin D3) 2,000 Unit Cap PO SCH (08:11)
[2023-01-02] MEDS: Calcium Polycarbophil 625 MG Tab PO SCH (08:11)
[2023-01-02] MEDS: metFORMIN 500 MG Tab PO SCH ×2 (08:11→17:09)
[2023-01-02] MEDS: Magnesium Oxide 400 MG Tab PO SCH (08:11)
[2023-01-02] MEDS: Tamsulosin 0.4 MG Cap.ER PO SCH (08:11)
[2023-01-02] MEDS: Warfarin 3 MG Tab PO SCH (17:09)
[2023-01-02] MEDS: Latanoprost 0.005% Ophth Soln 2.5 ML Bottle EYERT SCH ×2 (20:44)
[2023-01-02] MEDS: Melatonin 10 MG Cap PO SCH (20:45)
[2023-01-02] MEDS: atorvaSTATin 80 MG Tab PO SCH (20:45)
[2023-01-02] MEDS: Psyllium Husk Powder Sugar Free 5.85 GM Packet PO SCH (20:46)
[2023-01-02] MEDS ORDERED: SUVOREXANT 5 MG PO SCH (21:00)
[2023-01-03] MEDS ORDERED: ALPRAZolam 0.25 MG Tab PO ONE (02:58)
[2023-01-03] MEDS: Magnesium Oxide 400 MG Tab PO SCH (07:26)
[2023-01-03] MEDS: Acetaminophen 650 MG Tab.ER PO SCH ×2 (07:26→20:51)
[2023-01-03] MEDS: Digoxin 125 MCG Tab PO SCH (07:26)
[2023-01-03] MEDS: Calcium Polycarbophil 625 MG Tab PO SCH (07:27)
[2023-01-03] MEDS: Phenytoin 100 MG Cap.ER PO SCH ×2 (07:27→20:52)
[2023-01-03] MEDS: Multivitamins with Iron/Calcium/Folic Acid/Minerals Tab PO SCH (07:27)
[2023-01-03] MEDS: Furosemide 20 MG Tab PO SCH (07:27)
[2023-01-03] MEDS: Omeprazole 20 MG Cap.CR PO SCH (07:27)
[2023-01-03] MEDS: Metoprolol Succinate 25 MG Tab.ER PO SCH (07:27)
[2023-01-03] MEDS: Tamsulosin 0.4 MG Cap.ER PO SCH (07:28)
[2023-01-03] MEDS: metFORMIN 500 MG Tab PO SCH ×2 (07:28→17:31)
[2023-01-03] MEDS: Lisinopril 5 MG Tab PO SCH (07:28)
[2023-01-03] MEDS: Cholecalciferol (Vitamin D3) 2,000 Unit Cap PO SCH (07:28)
[2023-01-03] MEDS: Warfarin 3 MG Tab PO SCH (17:31)
[2023-01-03] MEDS: Latanoprost 0.005% Ophth Soln 2.5 ML Bottle EYERT SCH (20:50)
[2023-01-03] MEDS: Melatonin 10 MG Cap PO SCH (20:51)
[2023-01-03] MEDS: atorvaSTATin 80 MG Tab PO SCH (20:51)
[2023-01-03] MEDS: SUVOREXANT 5 MG PO SCH (20:52)
[2023-01-03] MEDS: Psyllium Husk Powder Sugar Free 5.85 GM Packet PO SCH (20:57)
[2023-01-04] MEDS: Lisinopril 5 MG Tab PO SCH (07:39)
[2023-01-04] MEDS: Omeprazole 20 MG Cap.CR PO SCH (07:39)
[2023-01-04] MEDS: Phenytoin 100 MG Cap.ER PO SCH ×2 (07:39→20:29)
[2023-01-04] MEDS: Furosemide 20 MG Tab PO SCH (07:40)
[2023-01-04] MEDS: Digoxin 125 MCG Tab PO SCH (07:40)
[2023-01-04] MEDS: Tamsulosin 0.4 MG Cap.ER PO SCH (07:40)
[2023-01-04] MEDS: Calcium Polycarbophil 625 MG Tab PO SCH (07:40)
[2023-01-04] MEDS: Cholecalciferol (Vitamin D3) 2,000 Unit Cap PO SCH (07:40)
[2023-01-04] MEDS: Multivitamins with Iron/Calcium/Folic Acid/Minerals Tab PO SCH (07:41)
[2023-01-04] MEDS: Metoprolol Succinate 25 MG Tab.ER PO SCH (07:41)
[2023-01-04] MEDS: Magnesium Oxide 400 MG Tab PO SCH (07:41)
[2023-01-04] MEDS: Acetaminophen 650 MG Tab.ER PO SCH ×2 (07:42→20:28)
[2023-01-04] MEDS: metFORMIN 500 MG Tab PO SCH ×2 (07:42→17:06)
[2023-01-04] MEDS: Warfarin 3 MG Tab PO SCH (17:06)
[2023-01-04] MEDS: Melatonin 10 MG Cap PO SCH (20:28)
[2023-01-04] MEDS: atorvaSTATin 80 MG Tab PO SCH (20:28)
[2023-01-04] MEDS: SUVOREXANT 5 MG PO SCH (20:28)
[2023-01-04] MEDS: Psyllium Husk Powder Sugar Free 5.85 GM Packet PO SCH (20:29)
[2023-01-04] MEDS: Latanoprost 0.005% Ophth Soln 2.5 ML Bottle EYERT SCH (20:30)
[2023-01-05] MEDS: Multivitamins with Iron/Calcium/Folic Acid/Minerals Tab PO SCH (07:45)
[2023-01-05] MEDS: Omeprazole 20 MG Cap.CR PO SCH (07:45)
[2023-01-05] MEDS: Calcium Polycarbophil 625 MG Tab PO SCH (07:45)
[2023-01-05] MEDS: Digoxin 125 MCG Tab PO SCH (07:45)
[2023-01-05] MEDS: Furosemide 20 MG Tab PO SCH (07:45)
[2023-01-05] MEDS: Tamsulosin 0.4 MG Cap.ER PO SCH (07:46)
[2023-01-05] MEDS: Cholecalciferol (Vitamin D3) 2,000 Unit Cap PO SCH (07:46)
[2023-01-05] MEDS: metFORMIN 500 MG Tab PO SCH ×2 (07:46→17:05)
[2023-01-05] MEDS: Acetaminophen 650 MG Tab.ER PO SCH ×2 (07:46→20:37)
[2023-01-05] MEDS: Phenytoin 100 MG Cap.ER PO SCH ×2 (07:47→20:36)
[2023-01-05] MEDS: Lisinopril 5 MG Tab PO SCH (07:47)
[2023-01-05] MEDS: Metoprolol Succinate 25 MG Tab.ER PO SCH (07:47)
[2023-01-05] MEDS: Magnesium Oxide 400 MG Tab PO SCH (07:47)
[2023-01-05] MEDS: Warfarin 3 MG Tab PO SCH (17:05)
[2023-01-05] MEDS: Latanoprost 0.005% Ophth Soln 2.5 ML Bottle EYERT SCH (20:36)
[2023-01-05] MEDS: Melatonin 10 MG Cap PO SCH (20:37)
[2023-01-05] MEDS: atorvaSTATin 80 MG Tab PO SCH (20:37)
[2023-01-05] MEDS: Psyllium Husk Powder Sugar Free 5.85 GM Packet PO SCH (20:38)
[2023-01-05] MEDS: SUVOREXANT 5 MG PO SCH (20:38)
[2023-01-06] MEDS: Metoprolol Succinate 25 MG Tab.ER PO SCH (07:30)
[2023-01-06] MEDS: Multivitamins with Iron/Calcium/Folic Acid/Minerals Tab PO SCH (07:31)
[2023-01-06] MEDS: Tamsulosin 0.4 MG Cap.ER PO SCH (07:31)
[2023-01-06] MEDS: Phenytoin 100 MG Cap.ER PO SCH ×2 (07:31→20:36)
[2023-01-06] MEDS: Cholecalciferol (Vitamin D3) 2,000 Unit Cap PO SCH (07:31)
[2023-01-06] MEDS: Magnesium Oxide 400 MG Tab PO SCH (07:31)
[2023-01-06] MEDS: Furosemide 20 MG Tab PO SCH (07:31)
[2023-01-06] MEDS: Lisinopril 5 MG Tab PO SCH (07:31)
[2023-01-06] MEDS: Calcium Polycarbophil 625 MG Tab PO SCH (07:31)
[2023-01-06] MEDS: metFORMIN 500 MG Tab PO SCH ×2 (07:31→17:09)
[2023-01-06] MEDS: Digoxin 125 MCG Tab PO SCH (07:31)
[2023-01-06] MEDS: Omeprazole 20 MG Cap.CR PO SCH (07:31)
[2023-01-06] MEDS: Acetaminophen 650 MG Tab.ER PO SCH ×2 (07:32→20:37)
[2023-01-06] MEDS: Warfarin 3 MG Tab PO SCH (17:09)
[2023-01-06] MEDS: atorvaSTATin 80 MG Tab PO SCH (20:36)
[2023-01-06] MEDS: Melatonin 10 MG Cap PO SCH (20:36)
[2023-01-06] MEDS: SUVOREXANT 5 MG PO SCH (20:38)
[2023-01-06] MEDS: Latanoprost 0.005% Ophth Soln 2.5 ML Bottle EYERT SCH (20:44)
[2023-01-06] MEDS: Psyllium Husk Powder Sugar Free 5.85 GM Packet PO SCH (20:45)
[2023-01-07] MEDS: Multivitamins with Iron/Calcium/Folic Acid/Minerals Tab PO SCH (07:39)
[2023-01-07] MEDS: Furosemide 20 MG Tab PO SCH (07:39)
[2023-01-07] MEDS: Digoxin 125 MCG Tab PO SCH (07:40)
[2023-01-07] MEDS: Tamsulosin 0.4 MG Cap.ER PO SCH (07:40)
[2023-01-07] MEDS: Lisinopril 5 MG Tab PO SCH (07:40)
[2023-01-07] MEDS: Phenytoin 100 MG Cap.ER PO SCH ×2 (07:40→20:37)
[2023-01-07] MEDS: Calcium Polycarbophil 625 MG Tab PO SCH (07:40)
[2023-01-07] MEDS: Acetaminophen 650 MG Tab.ER PO SCH ×2 (07:41→20:38)
[2023-01-07] MEDS: Metoprolol Succinate 25 MG Tab.ER PO SCH (07:41)
[2023-01-07] MEDS: metFORMIN 500 MG Tab PO SCH ×2 (07:41→17:42)
[2023-01-07] MEDS: Magnesium Oxide 400 MG Tab PO SCH (07:42)
[2023-01-07] MEDS: Omeprazole 20 MG Cap.CR PO SCH (07:42)
[2023-01-07] MEDS: Cholecalciferol (Vitamin D3) 2,000 Unit Cap PO SCH (07:42)
[2023-01-07] MEDS: Warfarin 3 MG Tab PO SCH (17:42)
[2023-01-07] MEDS: Melatonin 10 MG Cap PO SCH (20:37)
[2023-01-07] MEDS: SUVOREXANT 5 MG PO SCH (20:37)
[2023-01-07] MEDS: atorvaSTATin 80 MG Tab PO SCH (20:37)
[2023-01-07] MEDS: Latanoprost 0.005% Ophth Soln 2.5 ML Bottle EYERT SCH (20:38)
[2023-01-08] MEDS: Phenytoin 100 MG Cap.ER PO SCH ×2 (07:22→20:50)
[2023-01-08] MEDS: Magnesium Oxide 400 MG Tab PO SCH (07:22)
[2023-01-08] MEDS: Tamsulosin 0.4 MG Cap.ER PO SCH (07:22)
[2023-01-08] MEDS: Cholecalciferol (Vitamin D3) 2,000 Unit Cap PO SCH (07:22)
[2023-01-08] MEDS: Acetaminophen 650 MG Tab.ER PO SCH ×2 (07:22→20:50)
[2023-01-08] MEDS: Digoxin 125 MCG Tab PO SCH (07:22)
[2023-01-08] MEDS: Multivitamins with Iron/Calcium/Folic Acid/Minerals Tab PO SCH (07:22)
[2023-01-08] MEDS: Calcium Polycarbophil 625 MG Tab PO SCH (07:23)
[2023-01-08] MEDS: metFORMIN 500 MG Tab PO SCH ×2 (07:23→17:10)
[2023-01-08] MEDS: Omeprazole 20 MG Cap.CR PO SCH (07:23)
[2023-01-08] MEDS: Furosemide 20 MG Tab PO SCH (07:23)
[2023-01-08] MEDS: Lisinopril 5 MG Tab PO SCH (07:23)
[2023-01-08] MEDS: Metoprolol Succinate 25 MG Tab.ER PO SCH (07:23)
[2023-01-08] MEDS: Warfarin 3 MG Tab PO SCH (17:10)
[2023-01-08] MEDS: Melatonin 10 MG Cap PO SCH (20:50)
[2023-01-08] MEDS: Latanoprost 0.005% Ophth Soln 2.5 ML Bottle EYERT SCH (20:50)
[2023-01-08] MEDS: atorvaSTATin 80 MG Tab PO SCH (20:50)
[2023-01-08] MEDS: SUVOREXANT 5 MG PO SCH (20:50)
[2023-01-09] MEDS: Furosemide 20 MG Tab PO SCH (07:45)
[2023-01-09] MEDS: Acetaminophen 650 MG Tab.ER PO SCH ×2 (07:45→21:12)
[2023-01-09] MEDS: Tamsulosin 0.4 MG Cap.ER PO SCH (07:45)
[2023-01-09] MEDS: Cholecalciferol (Vitamin D3) 2,000 Unit Cap PO SCH (07:45)
[2023-01-09] MEDS: Magnesium Oxide 400 MG Tab PO SCH (07:45)
[2023-01-09] MEDS: Omeprazole 20 MG Cap.CR PO SCH (07:45)
[2023-01-09] MEDS: Phenytoin 100 MG Cap.ER PO SCH ×2 (07:45→19:28)
[2023-01-09] MEDS: Multivitamins with Iron/Calcium/Folic Acid/Minerals Tab PO SCH (07:45)
[2023-01-09] MEDS: Calcium Polycarbophil 625 MG Tab PO SCH (07:45)
[2023-01-09] MEDS: Metoprolol Succinate 25 MG Tab.ER PO SCH (07:45)
[2023-01-09] MEDS: Digoxin 125 MCG Tab PO SCH (07:45)
[2023-01-09] MEDS: metFORMIN 500 MG Tab PO SCH ×2 (07:45→17:59)
[2023-01-09] MEDS: Lisinopril 5 MG Tab PO SCH (07:45)
[2023-01-09] MEDS: Warfarin 3 MG Tab PO SCH (17:59)
[2023-01-09] MEDS: atorvaSTATin 80 MG Tab PO SCH (19:29)
[2023-01-09] MEDS: Melatonin 10 MG Cap PO SCH (19:29)
[2023-01-09] MEDS: Latanoprost 0.005% Ophth Soln 2.5 ML Bottle EYERT SCH (19:29)
[2023-01-09] MEDS: SUVOREXANT 5 MG PO SCH (21:12)
[2023-01-09] MEDS ORDERED: Magnesium Chloride 64 MG Tab.ER PO ONE (22:00)
[2023-01-10] MEDS: Acetaminophen 325 MG Tab PO PRN (02:22)
[2023-01-10] MEDS: Cholecalciferol (Vitamin D3) 2,000 Unit Cap PO SCH (07:33)
[2023-01-10] MEDS: Magnesium Oxide 400 MG Tab PO SCH (07:33)
[2023-01-10] MEDS: metFORMIN 500 MG Tab PO SCH ×2 (07:33→17:33)
[2023-01-10] MEDS: Furosemide 20 MG Tab PO SCH (07:33)
[2023-01-10] MEDS: Calcium Polycarbophil 625 MG Tab PO SCH (07:33)
[2023-01-10] MEDS: Tamsulosin 0.4 MG Cap.ER PO SCH (07:33)
[2023-01-10] MEDS: Omeprazole 20 MG Cap.CR PO SCH (07:33)
[2023-01-10] MEDS: Acetaminophen 650 MG Tab.ER PO SCH ×2 (07:34→20:37)
[2023-01-10] MEDS: Multivitamins with Iron/Calcium/Folic Acid/Minerals Tab PO SCH (07:34)
[2023-01-10] MEDS: Phenytoin 100 MG Cap.ER PO SCH ×2 (07:34→20:37)
[2023-01-10] MEDS: Lisinopril 5 MG Tab PO SCH (07:34)
[2023-01-10] MEDS: Metoprolol Succinate 25 MG Tab.ER PO SCH (07:34)
[2023-01-10] MEDS: Digoxin 125 MCG Tab PO SCH (07:35)
[2023-01-10] MEDS: Warfarin 3 MG Tab PO SCH (17:33)
[2023-01-10] MEDS: atorvaSTATin 80 MG Tab PO SCH (20:36)
[2023-01-10] MEDS: Melatonin 10 MG Cap PO SCH (20:36)
[2023-01-10] MEDS: rOPINIRole 1 MG Tab PO SCH (20:37)
[2023-01-10] MEDS: Latanoprost 0.005% Ophth Soln 2.5 ML Bottle EYERT SCH (20:38)
[2023-01-10] MEDS: SUVOREXANT 5 MG PO SCH (20:38)
[2023-01-10] MEDS: Magnesium Chloride 64 MG Tab.ER PO SCH (23:41)
[2023-01-11] MEDS: Cholecalciferol (Vitamin D3) 2,000 Unit Cap PO SCH (07:25)
[2023-01-11] MEDS: Omeprazole 20 MG Cap.CR PO SCH (07:25)
[2023-01-11] MEDS: Digoxin 125 MCG Tab PO SCH (07:25)
[2023-01-11] MEDS: metFORMIN 500 MG Tab PO SCH ×2 (07:26→18:02)
[2023-01-11] MEDS: Lisinopril 5 MG Tab PO SCH (07:26)
[2023-01-11] MEDS: Magnesium Chloride 64 MG Tab.ER PO SCH ×2 (07:27→20:42)
[2023-01-11] MEDS: Acetaminophen 650 MG Tab.ER PO SCH ×2 (07:27→20:42)
[2023-01-11] MEDS: Furosemide 20 MG Tab PO SCH (07:27)
[2023-01-11] MEDS: Calcium Polycarbophil 625 MG Tab PO SCH (07:27)
[2023-01-11] MEDS: Multivitamins with Iron/Calcium/Folic Acid/Minerals Tab PO SCH (07:27)
[2023-01-11] MEDS: Tamsulosin 0.4 MG Cap.ER PO SCH (07:28)
[2023-01-11] MEDS: Metoprolol Succinate 25 MG Tab.ER PO SCH (07:28)
[2023-01-11] MEDS: Phenytoin 100 MG Cap.ER PO SCH ×2 (07:29→20:43)
[2023-01-11] MEDS: Warfarin 3 MG Tab PO SCH (18:02)
[2023-01-11] MEDS: rOPINIRole 1 MG Tab PO SCH (20:42)
[2023-01-11] MEDS: Melatonin 10 MG Cap PO SCH (20:42)
[2023-01-11] MEDS: SUVOREXANT 5 MG PO SCH (20:43)
[2023-01-11] MEDS: atorvaSTATin 80 MG Tab PO SCH (20:43)
[2023-01-11] MEDS: Latanoprost 0.005% Ophth Soln 2.5 ML Bottle EYERT SCH (20:44)
[2023-01-12] MEDS: Cholecalciferol (Vitamin D3) 2,000 Unit Cap PO SCH (08:39)
[2023-01-12] MEDS: Omeprazole 20 MG Cap.CR PO SCH (08:39)
[2023-01-12] MEDS: metFORMIN 500 MG Tab PO SCH ×2 (08:40→18:34)
[2023-01-12] MEDS: Tamsulosin 0.4 MG Cap.ER PO SCH (08:41)
[2023-01-12] MEDS: Calcium Polycarbophil 625 MG Tab PO SCH (08:41)
[2023-01-12] MEDS: Digoxin 125 MCG Tab PO SCH (08:41)
[2023-01-12] MEDS: Acetaminophen 650 MG Tab.ER PO SCH ×2 (08:42→20:48)
[2023-01-12] MEDS: Multivitamins with Iron/Calcium/Folic Acid/Minerals Tab PO SCH (08:42)
[2023-01-12] MEDS: Magnesium Chloride 64 MG Tab.ER PO SCH ×2 (08:42→20:48)
[2023-01-12] MEDS: Lisinopril 5 MG Tab PO SCH (08:43)
[2023-01-12] MEDS: Phenytoin 100 MG Cap.ER PO SCH ×2 (08:43→20:49)
[2023-01-12] MEDS: Metoprolol Succinate 25 MG Tab.ER PO SCH (08:43)
[2023-01-12] MEDS: Furosemide 20 MG Tab PO SCH (08:43)
[2023-01-12] MEDS: Warfarin 3 MG Tab PO SCH (18:34)
[2023-01-12] MEDS: atorvaSTATin 80 MG Tab PO SCH (20:48)
[2023-01-12] MEDS: Melatonin 10 MG Cap PO SCH (20:48)
[2023-01-12] MEDS: rOPINIRole 1 MG Tab PO SCH (20:48)
[2023-01-12] MEDS: SUVOREXANT 5 MG PO SCH (20:49)
[2023-01-12] MEDS: Latanoprost 0.005% Ophth Soln 2.5 ML Bottle EYERT SCH (20:50)
[2023-01-13] MEDS: Digoxin 125 MCG Tab PO SCH (07:45)
[2023-01-13] MEDS: Omeprazole 20 MG Cap.CR PO SCH (07:45)
[2023-01-13] MEDS: Furosemide 20 MG Tab PO SCH (07:45)
[2023-01-13] MEDS: Tamsulosin 0.4 MG Cap.ER PO SCH (07:45)
[2023-01-13] MEDS: Acetaminophen 650 MG Tab.ER PO SCH ×2 (07:45→21:04)
[2023-01-13] MEDS: Magnesium Chloride 64 MG Tab.ER PO SCH ×2 (07:45→21:03)
[2023-01-13] MEDS: Phenytoin 100 MG Cap.ER PO SCH ×2 (07:45→21:03)
[2023-01-13] MEDS: Cholecalciferol (Vitamin D3) 2,000 Unit Cap PO SCH (07:46)
[2023-01-13] MEDS: Lisinopril 5 MG Tab PO SCH (07:46)
[2023-01-13] MEDS: Calcium Polycarbophil 625 MG Tab PO SCH (07:46)
[2023-01-13] MEDS: Metoprolol Succinate 25 MG Tab.ER PO SCH (07:46)
[2023-01-13] MEDS: metFORMIN 500 MG Tab PO SCH ×2 (07:46→18:46)
[2023-01-13] MEDS: Multivitamins with Iron/Calcium/Folic Acid/Minerals Tab PO SCH (07:46)
[2023-01-13] MEDS: Warfarin 3 MG Tab PO SCH (18:46)
[2023-01-13] MEDS: Latanoprost 0.005% Ophth Soln 2.5 ML Bottle EYERT SCH (21:02)
[2023-01-13] MEDS: SUVOREXANT 5 MG PO SCH (21:02)
[2023-01-13] MEDS: atorvaSTATin 80 MG Tab PO SCH (21:03)
[2023-01-13] MEDS: Melatonin 10 MG Cap PO SCH (21:03)
[2023-01-13] MEDS: rOPINIRole 1 MG Tab PO SCH (21:03)
[2023-01-14] MEDS: Metoprolol Succinate 25 MG Tab.ER PO SCH (07:16)
[2023-01-14] MEDS: Calcium Polycarbophil 625 MG Tab PO SCH (07:16)
[2023-01-14] MEDS: Cholecalciferol (Vitamin D3) 2,000 Unit Cap PO SCH (07:16)
[2023-01-14] MEDS: metFORMIN 500 MG Tab PO SCH ×2 (07:17→17:52)
[2023-01-14] MEDS: Digoxin 125 MCG Tab PO SCH (07:17)
[2023-01-14] MEDS: Acetaminophen 650 MG Tab.ER PO SCH ×2 (07:17→20:15)
[2023-01-14] MEDS: Magnesium Chloride 64 MG Tab.ER PO SCH ×2 (07:18→20:14)
[2023-01-14] MEDS: Phenytoin 100 MG Cap.ER PO SCH ×2 (07:18→20:14)
[2023-01-14] MEDS: Lisinopril 5 MG Tab PO SCH (07:18)
[2023-01-14] MEDS: Multivitamins with Iron/Calcium/Folic Acid/Minerals Tab PO SCH (07:19)
[2023-01-14] MEDS: Furosemide 20 MG Tab PO SCH (07:19)
[2023-01-14] MEDS: Omeprazole 20 MG Cap.CR PO SCH (07:19)
[2023-01-14] MEDS: Tamsulosin 0.4 MG Cap.ER PO SCH (07:19)
[2023-01-14] MEDS: Warfarin 3 MG Tab PO SCH (17:52)
[2023-01-14] MEDS: rOPINIRole 1 MG Tab PO SCH (20:14)
[2023-01-14] MEDS: Latanoprost 0.005% Ophth Soln 2.5 ML Bottle EYERT SCH (20:14)
[2023-01-14] MEDS: Melatonin 10 MG Cap PO SCH (20:14)
[2023-01-14] MEDS: atorvaSTATin 80 MG Tab PO SCH (20:15)
[2023-01-14] MEDS: SUVOREXANT 5 MG PO SCH (21:25)
[2023-01-15] MEDS: Cholecalciferol (Vitamin D3) 2,000 Unit Cap PO SCH (07:38)
[2023-01-15] MEDS: metFORMIN 500 MG Tab PO SCH ×2 (07:39→17:16)
[2023-01-15] MEDS: Magnesium Chloride 64 MG Tab.ER PO SCH ×2 (07:39→21:00)
[2023-01-15] MEDS: Tamsulosin 0.4 MG Cap.ER PO SCH (07:39)
[2023-01-15] MEDS: Calcium Polycarbophil 625 MG Tab PO SCH (07:39)
[2023-01-15] MEDS: Acetaminophen 650 MG Tab.ER PO SCH ×2 (07:40→21:00)
[2023-01-15] MEDS: Omeprazole 20 MG Cap.CR PO SCH (07:40)
[2023-01-15] MEDS: Furosemide 20 MG Tab PO SCH (07:40)
[2023-01-15] MEDS: Metoprolol Succinate 25 MG Tab.ER PO SCH (07:40)
[2023-01-15] MEDS: Digoxin 125 MCG Tab PO SCH (07:41)
[2023-01-15] MEDS: Lisinopril 5 MG Tab PO SCH (07:41)
[2023-01-15] MEDS: Multivitamins with Iron/Calcium/Folic Acid/Minerals Tab PO SCH (07:41)
[2023-01-15] MEDS: Phenytoin 100 MG Cap.ER PO SCH ×2 (07:42→21:00)
[2023-01-15] MEDS: Warfarin 3 MG Tab PO SCH (17:16)
[2023-01-15] MEDS: SUVOREXANT 5 MG PO SCH (20:59)
[2023-01-15] MEDS: Latanoprost 0.005% Ophth Soln 2.5 ML Bottle EYERT SCH (21:00)
[2023-01-15] MEDS: atorvaSTATin 80 MG Tab PO SCH (21:00)
[2023-01-15] MEDS: Melatonin 10 MG Cap PO SCH (21:00)
[2023-01-15] MEDS: rOPINIRole 1 MG Tab PO SCH (21:00)
[2023-01-16] MEDS: Calcium Polycarbophil 625 MG Tab PO SCH (07:19)
[2023-01-16] MEDS: Phenytoin 100 MG Cap.ER PO SCH ×2 (07:19→20:02)
[2023-01-16] MEDS: metFORMIN 500 MG Tab PO SCH ×2 (07:19→17:26)
[2023-01-16] MEDS: Magnesium Chloride 64 MG Tab.ER PO SCH ×2 (07:19→20:03)
[2023-01-16] MEDS: Omeprazole 20 MG Cap.CR PO SCH (07:20)
[2023-01-16] MEDS: Multivitamins with Iron/Calcium/Folic Acid/Minerals Tab PO SCH (07:20)
[2023-01-16] MEDS: Tamsulosin 0.4 MG Cap.ER PO SCH (07:20)
[2023-01-16] MEDS: Metoprolol Succinate 25 MG Tab.ER PO SCH (07:20)
[2023-01-16] MEDS: Cholecalciferol (Vitamin D3) 2,000 Unit Cap PO SCH (07:20)
[2023-01-16] MEDS: Acetaminophen 650 MG Tab.ER PO SCH ×2 (07:20→20:03)
[2023-01-16] MEDS: Digoxin 125 MCG Tab PO SCH (07:20)
[2023-01-16] MEDS: Furosemide 20 MG Tab PO SCH (07:21)
[2023-01-16] MEDS: Lisinopril 5 MG Tab PO SCH (07:21)
[2023-01-16] MEDS: Warfarin 3 MG Tab PO SCH (17:26)
[2023-01-16] MEDS: Latanoprost 0.005% Ophth Soln 2.5 ML Bottle EYERT SCH (20:01)
[2023-01-16] MEDS: atorvaSTATin 80 MG Tab PO SCH (20:02)
[2023-01-16] MEDS: rOPINIRole 1 MG Tab PO SCH (20:03)
[2023-01-16] MEDS: Melatonin 10 MG Cap PO SCH (20:03)
[2023-01-16] MEDS: SUVOREXANT 5 MG PO SCH (21:16)
[2023-01-17] MEDS: Digoxin 125 MCG Tab PO SCH (07:35)
[2023-01-17] MEDS: Cholecalciferol (Vitamin D3) 2,000 Unit Cap PO SCH (07:35)
[2023-01-17] MEDS: Furosemide 20 MG Tab PO SCH (07:35)
[2023-01-17] MEDS: Metoprolol Succinate 25 MG Tab.ER PO SCH (07:35)
[2023-01-17] MEDS: Phenytoin 100 MG Cap.ER PO SCH ×2 (07:36→19:56)
[2023-01-17] MEDS: Lisinopril 5 MG Tab PO SCH (07:36)
[2023-01-17] MEDS: Omeprazole 20 MG Cap.CR PO SCH (07:36)
[2023-01-17] MEDS: Magnesium Chloride 64 MG Tab.ER PO SCH ×2 (07:37→19:58)
[2023-01-17] MEDS: Multivitamins with Iron/Calcium/Folic Acid/Minerals Tab PO SCH (07:37)
[2023-01-17] MEDS: Tamsulosin 0.4 MG Cap.ER PO SCH (07:37)
[2023-01-17] MEDS: Acetaminophen 650 MG Tab.ER PO SCH ×2 (07:37→19:56)
[2023-01-17] MEDS: metFORMIN 500 MG Tab PO SCH ×2 (07:37→19:16)
[2023-01-17] MEDS: Calcium Polycarbophil 625 MG Tab PO SCH (07:38)
[2023-01-17] MEDS: Warfarin 3 MG Tab PO SCH (19:16)
[2023-01-17] MEDS: atorvaSTATin 80 MG Tab PO SCH (19:57)
[2023-01-17] MEDS: Melatonin 10 MG Cap PO SCH (19:57)
[2023-01-17] MEDS ORDERED: rOPINIRole 2 MG Tab PO SCH (20:00)
[2023-01-17] MEDS: Latanoprost 0.005% Ophth Soln 2.5 ML Bottle EYERT SCH (20:04)
[2023-01-17] MEDS: rOPINIRole 1 MG Tab PO SCH (20:06)
[2023-01-17] MEDS: SUVOREXANT 5 MG PO SCH (20:44)
[2023-01-18] MEDS: Cholecalciferol (Vitamin D3) 2,000 Unit Cap PO SCH (07:06)
[2023-01-18] MEDS: metFORMIN 500 MG Tab PO SCH ×2 (07:06→17:32)
[2023-01-18] MEDS: Omeprazole 20 MG Cap.CR PO SCH (07:06)
[2023-01-18] MEDS: Phenytoin 100 MG Cap.ER PO SCH ×2 (07:07→19:50)
[2023-01-18] MEDS: Lisinopril 5 MG Tab PO SCH (07:07)
[2023-01-18] MEDS: Digoxin 125 MCG Tab PO SCH (07:07)
[2023-01-18] MEDS: Tamsulosin 0.4 MG Cap.ER PO SCH (07:07)
[2023-01-18] MEDS: Calcium Polycarbophil 625 MG Tab PO SCH (07:08)
[2023-01-18] MEDS: Multivitamins with Iron/Calcium/Folic Acid/Minerals Tab PO SCH (07:08)
[2023-01-18] MEDS: Magnesium Chloride 64 MG Tab.ER PO SCH ×2 (07:08→19:49)
[2023-01-18] MEDS: Metoprolol Succinate 25 MG Tab.ER PO SCH (07:08)
[2023-01-18] MEDS: Acetaminophen 650 MG Tab.ER PO SCH ×2 (07:09→19:50)
[2023-01-18] MEDS: Furosemide 20 MG Tab PO SCH (07:09)
[2023-01-18] MEDS: Warfarin 3 MG Tab PO SCH (17:32)
[2023-01-18] MEDS: Melatonin 10 MG Cap PO SCH (19:50)
[2023-01-18] MEDS: rOPINIRole 1 MG Tab PO SCH (19:51)
[2023-01-18] MEDS: atorvaSTATin 80 MG Tab PO SCH (19:51)
[2023-01-18] MEDS: Latanoprost 0.005% Ophth Soln 2.5 ML Bottle EYERT SCH (19:53)
[2023-01-18] MEDS: SUVOREXANT 5 MG PO SCH (21:22)
[2023-01-19] MEDS: Calcium Polycarbophil 625 MG Tab PO SCH (07:39)
[2023-01-19] MEDS: Tamsulosin 0.4 MG Cap.ER PO SCH (07:39)
[2023-01-19] MEDS: Omeprazole 20 MG Cap.CR PO SCH (07:39)
[2023-01-19] MEDS: Furosemide 20 MG Tab PO SCH (07:39)
[2023-01-19] MEDS: Phenytoin 100 MG Cap.ER PO SCH ×2 (07:39→19:59)
[2023-01-19] MEDS: Magnesium Chloride 64 MG Tab.ER PO SCH ×2 (07:40→20:00)
[2023-01-19] MEDS: metFORMIN 500 MG Tab PO SCH ×2 (07:40→17:05)
[2023-01-19] MEDS: Cholecalciferol (Vitamin D3) 2,000 Unit Cap PO SCH (07:40)
[2023-01-19] MEDS: Metoprolol Succinate 25 MG Tab.ER PO SCH (07:40)
[2023-01-19] MEDS: Acetaminophen 650 MG Tab.ER PO SCH ×2 (07:41→19:59)
[2023-01-19] MEDS: Lisinopril 5 MG Tab PO SCH (07:41)
[2023-01-19] MEDS: Digoxin 125 MCG Tab PO SCH (07:41)
[2023-01-19] MEDS: Multivitamins with Iron/Calcium/Folic Acid/Minerals Tab PO SCH (07:41)
[2023-01-19] MEDS: Warfarin 3 MG Tab PO SCH (17:05)
[2023-01-19] MEDS: atorvaSTATin 80 MG Tab PO SCH (20:00)
[2023-01-19] MEDS: Melatonin 10 MG Cap PO SCH (20:00)
[2023-01-19] MEDS: rOPINIRole 1 MG Tab PO SCH (20:00)
[2023-01-19] MEDS: Latanoprost 0.005% Ophth Soln 2.5 ML Bottle EYERT SCH (20:00)
[2023-01-19] MEDS: SUVOREXANT 5 MG PO SCH (21:03)
[2023-01-20] MEDS: Tamsulosin 0.4 MG Cap.ER PO SCH (07:51)
[2023-01-20] MEDS: Multivitamins with Iron/Calcium/Folic Acid/Minerals Tab PO SCH (07:51)
[2023-01-20] MEDS: Magnesium Chloride 64 MG Tab.ER PO SCH ×2 (07:51→20:58)
[2023-01-20] MEDS: metFORMIN 500 MG Tab PO SCH ×2 (07:51→18:00)
[2023-01-20] MEDS: Acetaminophen 650 MG Tab.ER PO SCH ×2 (07:52→20:58)
[2023-01-20] MEDS: Lisinopril 5 MG Tab PO SCH (07:52)
[2023-01-20] MEDS: Cholecalciferol (Vitamin D3) 2,000 Unit Cap PO SCH (07:52)
[2023-01-20] MEDS: Omeprazole 20 MG Cap.CR PO SCH (07:53)
[2023-01-20] MEDS: Metoprolol Succinate 25 MG Tab.ER PO SCH (07:53)
[2023-01-20] MEDS: Digoxin 125 MCG Tab PO SCH (07:53)
[2023-01-20] MEDS: Phenytoin 100 MG Cap.ER PO SCH ×2 (07:54→20:57)
[2023-01-20] MEDS: Furosemide 20 MG Tab PO SCH (07:54)
[2023-01-20] MEDS: Calcium Polycarbophil 625 MG Tab PO SCH (07:54)
[2023-01-20] MEDS: Warfarin 3 MG Tab PO SCH (18:36)
[2023-01-20] MEDS: rOPINIRole 1 MG Tab PO SCH (20:57)
[2023-01-20] MEDS: atorvaSTATin 80 MG Tab PO SCH (20:58)
[2023-01-20] MEDS: Melatonin 10 MG Cap PO SCH (20:58)
[2023-01-20] MEDS: Latanoprost 0.005% Ophth Soln 2.5 ML Bottle EYERT SCH (20:58)
[2023-01-20] MEDS: SUVOREXANT 5 MG PO SCH (20:59)
[2023-01-21 07:25] VITALS: BP 140/71; PULSE 88
[2023-01-21] MEDS: Metoprolol Succinate 25 MG Tab.ER PO SCH (07:32)
[2023-01-21] MEDS: Cholecalciferol (Vitamin D3) 2,000 Unit Cap PO SCH (07:32)
[2023-01-21] MEDS: Omeprazole 20 MG Cap.CR PO SCH (07:32)
[2023-01-21] MEDS: Calcium Polycarbophil 625 MG Tab PO SCH (07:33)
[2023-01-21] MEDS: Acetaminophen 650 MG Tab.ER PO SCH ×2 (07:33→20:44)
[2023-01-21] MEDS: Multivitamins with Iron/Calcium/Folic Acid/Minerals Tab PO SCH (07:34)
[2023-01-21] MEDS: Tamsulosin 0.4 MG Cap.ER PO SCH (07:34)
[2023-01-21] MEDS: Lisinopril 5 MG Tab PO SCH (07:34)
[2023-01-21] MEDS: Furosemide 20 MG Tab PO SCH (07:35)
[2023-01-21] MEDS: metFORMIN 500 MG Tab PO SCH ×2 (07:35→16:56)
[2023-01-21] MEDS: Digoxin 125 MCG Tab PO SCH (07:35)
[2023-01-21] MEDS: Magnesium Chloride 64 MG Tab.ER PO SCH ×2 (07:36→20:44)
[2023-01-21] MEDS: Phenytoin 100 MG Cap.ER PO SCH ×2 (07:36→20:44)
[2023-01-21] MEDS: Warfarin 3 MG Tab PO SCH (17:09)
[2023-01-21] MEDS: atorvaSTATin 80 MG Tab PO SCH (20:44)
[2023-01-21] MEDS: Latanoprost 0.005% Ophth Soln 2.5 ML Bottle EYERT SCH (20:44)
[2023-01-21] MEDS: Melatonin 10 MG Cap PO SCH (20:44)
[2023-01-21] MEDS: SUVOREXANT 5 MG PO SCH (20:44)
[2023-01-21] MEDS: rOPINIRole 1 MG Tab PO SCH (20:44)
[2023-01-22] MEDS: Phenytoin 100 MG Cap.ER PO SCH (07:31)
[2023-01-22] MEDS: Magnesium Chloride 64 MG Tab.ER PO SCH (07:31)
[2023-01-22] MEDS: Calcium Polycarbophil 625 MG Tab PO SCH (07:31)
[2023-01-22] MEDS: Acetaminophen 650 MG Tab.ER PO SCH (07:32)
[2023-01-22] MEDS: Multivitamins with Iron/Calcium/Folic Acid/Minerals Tab PO SCH (07:32)
[2023-01-22] MEDS: metFORMIN 500 MG Tab PO SCH (07:32)
[2023-01-22] MEDS: Lisinopril 5 MG Tab PO SCH (07:32)
[2023-01-22] MEDS: Cholecalciferol (Vitamin D3) 2,000 Unit Cap PO SCH (07:32)
[2023-01-22] MEDS: Digoxin 125 MCG Tab PO SCH (07:33)
[2023-01-22] MEDS: Omeprazole 20 MG Cap.CR PO SCH (07:33)
[2023-01-22] MEDS: Tamsulosin 0.4 MG Cap.ER PO SCH (07:33)
[2023-01-22] MEDS: Metoprolol Succinate 25 MG Tab.ER PO SCH (07:33)
[2023-01-22] MEDS: Furosemide 20 MG Tab PO SCH (07:33)
== END 2023-01-22 10:30 | disposition home or self-care (01) | DRG 950 ==
LOC: UNDOADMOB 12-09 16:47 → LB.MS 12-09 16:47 → OBSVTOIN 12-09 17:01 → LB.MS 12-09 17:01
PROVIDERS: ADMIT Surgery; ATTEND Surgery
DX: Z48.817 Encounter for surgical aftercare following surgery on the skin and subcutaneous tissue (principal); I12.9 Hypertensive chronic kidney disease with stage 1 through stage 4 chronic kidney disease, or unspecified chronic kidney disease; N18.9 Chronic kidney disease, unspecified; G47.00 Insomnia, unspecified; I25.10 Atherosclerotic heart disease of native coronary artery without angina pectoris; E78.00 Pure hypercholesterolemia, unspecified; Z86.73 Personal history of transient ischemic attack (TIA), and cerebral infarction without residual deficits; Z79.01 Long term (current) use of anticoagulants; Z79.899 Other long term (current) drug therapy; Z88.0 Allergy status to penicillin; Z88.5 Allergy status to narcotic agent; Z88.8 Allergy status to other drugs, medicaments and biological substances
CPT/HCPCS: 0240U; 36415; 80053; 80162; 81001; 82306; 82947; 83735; 85025; 85651; 86140; 86580; 87493; 90694; 92507-GN; 92523-GN; 97110-GO; 97110-GP; 97116-GP; 97161-GP; 97164-GP; 97165-GO; 97168-GO; 97530-GO; 97530-GP; 97535-GO; A9270-GY; G0008

== ENCOUNTER 2024-08-30 11:40 | Inpatient (IN) | payer SELFPAY ==
[2024-08-30] MEDS: MENTHOL TOP SCH (14:03)
[2024-08-30] MEDS: Phenytoin 100 MG Cap.ER PO SCH (19:10)
[2024-08-31] MEDS: OMEPRAZOLE 20 MG PO SCH (08:41)
[2024-08-31] MEDS: OCUVITE ADULT PO SCH (08:42)
[2024-08-31] MEDS: [UNRECOGNIZED DRUG - OTHER] PO SCH (08:42)
[2024-08-31] MEDS: Cholecalciferol (Vitamin D3) 2,000 Unit Cap PO SCH (09:55)
[2024-08-31] MEDS: Melatonin 10 MG Cap PO SCH (19:10)
[2024-09-01] MEDS ORDERED: LIDOCAINE 4% TRDERM PRN (19:39)
[2024-09-01] MEDS: Melatonin 3 MG Tab **OWN MED PO SCH (20:05)
[2024-09-01] MEDS: traZODone 50 MG Tab **OWN MED PO SCH ×2 (20:07→20:10)
[2024-09-02] MEDS ORDERED: LIDOCAINE 4% TOP PRN (08:00)
[2024-09-02] MEDS: LIDOCAINE 4% TOP SCH (10:31)
[2024-09-03] MEDS: Acetaminophen 650 MG Tab.ER PO PRN (19:13)
[2024-09-10 18:25] VITALS: BP 135/52; PULSE 82
== END 2024-09-10 18:05 | disposition home or self-care (01) | DRG 951 ==
LOC: LB.MS 11:40 → UNDOADMIN 11:40 → LB.MS 11:45
PROVIDERS: ADMIT Emergency Medicine; ATTEND Emergency Medicine
DX: Z75.5 Holiday relief care (principal); F02.B4 Dementia in other diseases classified elsewhere, moderate, with anxiety; H91.90 Unspecified hearing loss, unspecified ear; I48.91 Unspecified atrial fibrillation; Z66 Do not resuscitate; Z51.5 Encounter for palliative care; E78.00 Pure hypercholesterolemia, unspecified; J44.9 Chronic obstructive pulmonary disease, unspecified; K21.9 Gastro-esophageal reflux disease without esophagitis; M19.90 Unspecified osteoarthritis, unspecified site; E11.9 Type 2 diabetes mellitus without complications; G30.9 Alzheimer's disease, unspecified; I50.9 Heart failure, unspecified; I11.0 Hypertensive heart disease with heart failure; N40.0 Benign prostatic hyperplasia without lower urinary tract symptoms; Z79.84 Long term (current) use of oral hypoglycemic drugs; Z88.0 Allergy status to penicillin; Z88.1 Allergy status to other antibiotic agents; Z86.73 Personal history of transient ischemic attack (TIA), and cerebral infarction without residual deficits; Z85.820 Personal history of malignant melanoma of skin; Z90.79 Acquired absence of other genital organ(s); Z98.890 Other specified postprocedural states; Z88.5 Allergy status to narcotic agent; Z88.8 Allergy status to other drugs, medicaments and biological substances; Z79.899 Other long term (current) drug therapy; Z79.01 Long term (current) use of anticoagulants
CPT/HCPCS: 51798; 82947; 99304; 99315; A9270-GY; J7512